=== PATIENT | male | born 1955 | race Caucasian/White ===

== ENCOUNTER 2016-08-14 22:35 | Emergency (ER) | payer BC ==
[~2016-08-14] VITALS: Ht 172.7 cm; Wt 86.6 kg
[~2016-08-14 22:35] MED LIST: ALBUAER19 INH; ASPEC81 PO; FLOMAX INH; PRLSR20 PO; SNG10 PO
[2016-08-14 22:39] VITALS: TEMP 37; Ht 172.7 cm; Wt 86.6 kg
[2016-08-14] MEDS ORDERED: XYLOCAINE 1%/SOD BICARB 20 ML VIAL INFIL ONE (22:50)
[2016-08-14] MEDS ORDERED: OMEP20TA PO (22:55)
[2016-08-14] MEDS ORDERED: FENO160T PO (22:55)
[2016-08-14] MEDS ORDERED: MONT1TAB5 PO (22:55)
[2016-08-14] MEDS ORDERED: LISI-461 PO (22:55)
[2016-08-14] MEDS ORDERED: ASPI81TA28 PO (22:55)
[2016-08-14] MEDS ORDERED: PRVHFAIN INH (22:55)
[2016-08-14] MEDS ORDERED: CEPH500C PO (23:19)
[2016-08-14 23:28] VITALS: BP 116/59; PULSE 71; O2SAT 95
[2016-08-14] MEDS ORDERED: CEPHALEXIN 500MG HOME PACK 1 EA BTL PO ONE (23:30)
--- NOTE | 2016-08-14 23:46 | EMERGENCY ROOM VISIT NOTE ---
History First contact with patient: 22:51 Chief Complaint: LACERATION/CUT (NON-SUTURE) Stated Complaint: CUT RT BIG TOE Nursing Triage Summary: laceration right gt toe cut it with a utility knife while laying carpet. History of Present Illness The patient is a 61 year old male who presents to the Emergency Room with complaints of a laceration to his right great toe while attempting to cut new carpeting in his home. The patient was only wearing socks. He was using a straight edge and carpet knife when the knife slipped and cut his toe. He reports a moderate amount of bleeding. He denies any paresthesias or numbness of the toe. Tetanus immunization is up-to-date. The patient rates his discomfort a 2 out of 10. Review of Systems 10 system review was performed and was negative except for pertinent positives and negatives as indicated in history of present illness Past Medical/Surgical History Medical Problems: (1) Asthma, Unspecified (2) Calculus Of Kidney (3) Cerv Spondyl W Myelopath (4) Mitral Valve Disorder (5) Rotator Cuff Rupture Family History Unremarkable Social History Smoking Status: Never Smoker Alcohol Use: occasionally Marital Status: Occupation Status: employed Current/Historical Medications Scheduled Aspirin (Aspirin Ec), 81 MG PO DAILY Cephalexin Monohydrate (Keflex), 500 MG PO TID Fenofibrate (Tricor), 160 MG PO DAILY Lisinopril (Zestril), 10 MG PO DAILY Montelukast Sodium (Montelukast Sodium), 10 MG PO QPM Scheduled PRN Albuterol (Ventolin Hfa), 2 PUFFS INH UD PRN for Asthma Symptoms Omeprazole (Omeprazole), 20 MG PO DAILY PRN for Acid Reflux Allergies Coded Allergies: Penicillins (Verified Allergy, Severe, ITCHING, 08/09/09) Physical Exam Vital Signs Date Time Temp Pulse Resp B/P Pulse Ox O2 Delivery O2 Flow Rate FiO2 08/14/16 23:28 71 18 116/59 95 Room Air 08/14/16 22:39 37.0 69 18 157/73 96 Room Air Pain Rating (0-10): 3.0 Physical Exam CONSTITUTIONAL: Healthy and well nourished. Alert and oriented X 3 with positive affect. HEENT: Normocephalic, atraumatic. Pupils equal, round and reactive. NECK: Full active range of motion without discomfort. MUSCULOSKELETAL: Examination of the right great toe shows a 2 cm transverse laceration over the medial aspect of the toe, and coming into close proximity to the base of the nail. Nail plate is intact. Mild bleeding is noted. Capillary refill is less than 2 seconds. INTEGUMENTARY: No rash or other significant dermatologic conditions noted. NEUROLOGIC: Right great toe is sensory intact. Medical Decision & Procedures Medications Administered Medications (Trade) Dose Ordered Sig/David Route Start Time Stop Time Status Last Admin Dose Admin Cephalexin Monohydrate (Keflex 500MG Home Pack) 1 homepack NOW ONCE PO 08/14/16 23:30 08/14/16 23:31 DC 08/14/16 23:28 1 HOMEPACK Procedure Laceration repair was performed under digital block anesthesia after receiving verbal consent from the patient. Using buffered 1% lidocaine without epinephrine, good digital block anesthesia was administered. The wound was then peripherally cleansed with iodine, then copiously pressure irrigated with normal saline. The wound was then approximated using 5-0 nylon simple interrupted sutures. Bacitracin dressing was applied. ED Course Patient history and physical exam were performed. Nurse's notes were reviewed. Laceration repair was performed under digital block anesthesia. The patient was provided additional verbal and written wound care instructions. Ice and elevation for swelling and pain. Ibuprofen or Tylenol if needed for additional pain relief. Cousin the laceration does involve the foot, and that the laceration is likely close to the bone, I did elect to treat the patient prophylactically with antibiotics. He was provided a home pack and prescription for Keflex 500 mg 3 times a day 7 days. Suture removal in 12-14 days, or seek reevaluation sooner for any signs of wound infection. The patient was happy with plan of care, voiced understanding of all discharge instructions, and denied any pain at the conclusion of my exam. Impression Primary Impression: Laceration of right great toe Departure Information Dispostion Home / Self-Care Prescriptions Cephalexin Monohydrate (Keflex) 500 Mg Cap 500 MG PO TID for 6 Days, #18 CAP Prov: Scott Chan PA 08/14/16 Referrals No Doctor, Assigned Forms HOME CARE DOCUMENTATION FORM, IMPORTANT VISIT INFORMATION Patient Instructions My [facility] Additional Instructions Keep wound clean and dry. Do not allow any crusting or dried blood to accumulate on sutures. If this occurs, use a 1:1 solution of hydrogen peroxide/ water on a Q-tip to clean the wound. Use an antibiotic ointment for 3-4 days, then let wound dry. Suture removal in 12-14 days. Return sooner for any signs of infection (increasing redness, swelling, drainage). Ice and elevate for swelling and pain. Ibuprofen 600 mg and/or Tylenol 1000 mg every 6 hrs for pain. Complete all Keflex antibiotics as prescribed. Problem Qualifiers Primary Impression: Laceration of right great toe Encounter type: initial encounter Qualified Codes: S91.111A - Laceration without foreign body of right great toe without damage to nail, initial encounter
== END 2016-08-14 23:39 | disposition home or self-care (01) ==
LOC: C.EDB 22:35 → C.EDC 23:39
DX: S91.111A Laceration without foreign body of right great toe without damage to nail, initial encounter (principal); J45.909 Unspecified asthma, uncomplicated; Z79.899 Other long term (current) drug therapy; Z79.82 Long term (current) use of aspirin; W26.0XXA Contact with knife, initial encounter; Y92.009 Unspecified place in unspecified non-institutional (private) residence as the place of occurrence of the external cause; Y99.8 Other external cause status

== ENCOUNTER → 2016-09-04 | Outpatient (CLI) | payer BC ==
[~2016-09-04] MED LIST changes: -ALBUAER19 INH; -ASPEC81 PO; +ASPI81TA28 PO; +FENO160T PO; -FLOMAX INH; +LISI-461 PO; +MONT1TAB5 PO; +OMEP20TA PO; -PRLSR20 PO; +PRVHFAIN INH; -SNG10 PO
--- NOTE | 2016-09-04 09:20 | DIAGNOSTIC IMAGING REPORT ---
ULTRASOUND RIGHT UPPER QUADRANT ABDOMEN CLINICAL HISTORY: Right upper quadrant abdominal pain. COMPARISON STUDY: Abdominal ultrasound dated 08/21/2010. TECHNIQUE: Real-time, grayscale, and color flow sonography of the right upper quadrant of the abdomen was performed. Images are reviewed in the transverse and longitudinal planes. FINDINGS: Liver: The liver is top normal in size and demonstrates heterogeneously increased echotexture consistent with hepatic steatosis. Fatty sparing is seen adjacent to gallbladder fossa. There is no intrahepatic biliary ductal dilatation. The main portal vein is patent. Scattered hepatic cysts measure up to 1.8 cm. Gallbladder: The gallbladder is normal in appearance. No gallstones are identified. There is no gallbladder wall thickening or pericholecystic fluid. A sonographic Ag's sign is reportedly absent. The common bile duct measures up to 0.4 cm in diameter. Pancreas: Visualized portions of the pancreatic head and body are normal in appearance. The splenic vein is patent. Right kidney: Survey images of the right kidney demonstrate normal size and echotexture. There is no hydronephrosis. Ascites: None. IMPRESSION: 1. No acute sonographic abnormality is identified. No gallstones are seen. 2. Hepatic steatosis. Electronically signed by: Maldonado Ontiveros M.D. 09/04/2016 9:18 AM Dictated Date/Time: 09/04/2016 9:17 AM
== END | disposition home or self-care (01) ==
LOC: C.ULTR 08:35
PROVIDERS: ATTEND Family Medicine
DX: R10.9 Unspecified abdominal pain (principal); K76.0 Fatty (change of) liver, not elsewhere classified

== ENCOUNTER → 2016-09-28 | Outpatient (CLI) | payer BC ==
[~2016-09-28] MED LIST changes: +SINCALIDE INJ 1.6 MCG in SODIUM CHLORIDE 0.9% 100ML 100 ML IV ONE
--- NOTE | 2016-09-28 12:29 | DIAGNOSTIC IMAGING REPORT ---
NUCLEAR MEDICINE HEPATOBILIARY SCAN WITH EJECTION FRACTION ANALYSIS CLINICAL HISTORY: RIGHT UPPER QUADRANT PAIN COMPARISON STUDY: 10/11/2008 FINDINGS: The patient was injected with 5.4 mCi of technetium 99m Choletec. Sequential anterior imaging was performed. The gallbladder was first visualized on the 15 minute image. At 1 hour, the patient was injected with 1.6 mcg of sincalide utilizing a 30 minute infusion. The gallbladder ejection fraction was normal measuring 97%. There is normal passage of activity into small bowel. IMPRESSION: Normal study. No evidence of cystic duct obstruction. Normal gallbladder ejection fraction of 97% Electronically signed by: Derek Astorga M.D. 09/28/2016 12:27 PM Dictated Date/Time: 09/28/2016 12:26 PM
== END | disposition home or self-care (01) ==
LOC: C.NUCL 10:08
PROVIDERS: ATTEND Family Medicine
DX: R10.11 Right upper quadrant pain (principal)

== ENCOUNTER → 2016-10-10 | Outpatient (CLI) | payer BC ==
[~2016-10-10] MED LIST changes: -SINCALIDE INJ 1.6 MCG in SODIUM CHLORIDE 0.9% 100ML 100 ML IV ONE
--- NOTE | 2016-10-10 16:42 | DIAGNOSTIC IMAGING REPORT ---
CHEST 2 VIEWS ROUTINE CLINICAL HISTORY: Persistent cough COMPARISON STUDY: 12/17/2013 FINDINGS: The cardiac and mediastinal contours are normal. There is no evidence of focal pulmonary consolidation. There is no evidence of failure. No pleural effusions are visualized.[ There are postsurgical changes present within the cervical spine. IMPRESSION: No active disease in the chest. Electronically signed by: Derek Astorga M.D. 10/10/2016 4:40 PM Dictated Date/Time: 10/10/2016 4:40 PM
[2016-10-10 17:49] LABS: BASO % 0.2 %; BASO ABS # 0.01 K/uL (0-0.2); COMPLETE YES; EOS % 1.2 %; HEMATOCRIT 37.6 % (42-52); IG% 0.7 %; LYMPH % 26.9 %; LYMPH ABS # 1.54 K/uL (1.2-3.4); MEAN CELL VOLUME 82.1 fL (80-100); MEAN CORPUSCULAR HEMOGLOBIN 28.4 pg (25-34); MEAN CORPUSCULAR HGB CONC 34.6 g/dl (32-36); MONO % 10.1 %; NEUT % 60.9 %; PLATELET COUNT 146 K/uL (130-400); RED BLOOD COUNT 4.58 M/uL (4.7-6.1); WHITE BLOOD COUNT 5.72 K/uL (4.8-10.8)
== END | disposition home or self-care (01) ==
LOC: C.LAB 16:01
PROVIDERS: ATTEND Family Medicine Adolescent Medicine
DX: R05 Cough (principal)

== ENCOUNTER 2017-08-04 01:36 | Emergency (ER) | payer BC, OTHER ==
[~2017-08-04] VITALS: Ht 172.7 cm; Wt 90.6 kg
[2017-08-04 01:39] VITALS: TEMP 36.8; Ht 172.7 cm; Wt 90.6 kg
[2017-08-04] MEDS ORDERED: ASPIRIN 81 MG ECTAB PO STA (01:51)
[2017-08-04] MEDS ORDERED: PANT40TA PO (01:59)
[2017-08-04] MEDS ORDERED: SODIUM CHLORIDE 0.9% 1000ML 1,000 ML IV ONE (02:00)
[2017-08-04] MEDS ORDERED: LOSA50TA6 PO (02:00)
[2017-08-04] MEDS ORDERED: NITROGLYCERIN OINT 2% 1GM PACKET EXT ONE (02:00)
[2017-08-04 03:00] VITALS: O2SAT 98
[2017-08-04 03:10] LABS: POTASSIUM 3.9 mmol/L (3.5-5.1); TOTAL PROTEIN 7.2 gm/dl (6.4-8.2)
[2017-08-04 03:12] LABS: BASO % 0.3 %; BASO ABS # 0.02 K/uL (0-0.2); EOS ABS # 0.12 K/uL (0-0.5); HEMATOCRIT 38.3 % (42-52); HEMOGLOBIN 13.5 g/dL (14.0-18.0); IG# 0.03 K/uL (0.00-0.02); LYMPH ABS # 1.52 K/uL (1.2-3.4); MEAN CELL VOLUME 83.4 fL (80-100); MEAN CORPUSCULAR HEMOGLOBIN 29.4 pg (25-34); MEAN CORPUSCULAR HGB CONC 35.2 g/dl (32-36); MEAN PLATELET VOLUME 10.4 fL (7.4-10.4); MONO % 8.4 %; MONO ABS # 0.51 K/uL (0.11-0.59); NEUT % 63.8 %; NEUT ABS # 3.88 K/uL (1.4-6.5); PLATELET COUNT 166 K/uL (130-400); RED CELL DISTRIBUTION WIDTH CV 12.9 % (11.5-14.5); RED CELL DISTRIBUTION WIDTH SD 38.8 fL (36.4-46.3); WHITE BLOOD COUNT 6.08 K/uL (4.8-10.8)
[2017-08-04 03:26] LABS: ALBUMIN 3.9 gm/dl (3.4-5.0); CALCIUM 9.6 mg/dl (8.5-10.1); CREATININE 1.17 mg/dl (0.60-1.40)
[2017-08-04] MEDS ORDERED: LIDOCAINE HCL 2% VISC SOLN 20 ML UDC ONE (04:11)
[2017-08-04] MEDS ORDERED: ALUMINUM/MAGNESIUM SUSP 30 ML UDC ONE (04:11)
[2017-08-04] MEDS ORDERED: GI COCKTAIL PO ONE (04:15)
[2017-08-04 05:09] VITALS: BP 138/73; PULSE 65; O2SAT 93
--- NOTE | 2017-08-04 07:15 | DIAGNOSTIC IMAGING REPORT ---
GALLBLADDER-ABD LIMITED CLINICAL HISTORY: 62 years-old Male presenting with Epigastric abd pain. TECHNIQUE: Real-time grayscale and limited color Doppler ultrasound imaging of the abdomen limited to the right upper quadrant was performed. COMPARISON: 09/04/2016. FINDINGS: Pancreas: Visualized portions of the pancreatic head and body are slightly heterogeneous. Liver: Moderately hyperechogenic parenchyma with partial obscuration of the right hemidiaphragm, likely indicating moderate steatosis. The liver measures 18 cm in maximal sagittal dimension. Lobular anechoic avascular lesion in the left hepatic lobe likely hepatic cyst. Additional hepatic cysts also noted elsewhere. Main portal vein patent with normal directional flow. Biliary: No intrahepatic biliary ductal dilatation. Common bile duct measures up to 3 mm in diameter. Gallbladder: Gallbladder sludge. Echogenic 3 mm nonshadowing focus in the gallbladder may represent a cholesterol polyp. No evidence of gallstones, gallbladder wall thickening, gallbladder distention, or pericholecystic fluid or inflammatory change. Sonographic Ag's sign negative. Right kidney: Normal in appearance. No hydronephrosis. Ascites: None. IMPRESSION: 1. Hepatic steatosis and mild hepatomegaly. Correlate with liver function enzymes to exclude steatohepatitis as a cause for abdominal pain. 2. Gallbladder sludge. No biliary ductal dilatation. 3. Apparent heterogeneity of the visualized portion of the pancreas. This is nonspecific. Correlate with lipase to exclude pancreatitis. Electronically signed by: Marco Lance M.D. 08/04/2017 7:14 AM Dictated Date/Time: 08/04/2017 7:10 AM
--- NOTE | 2017-08-04 07:22 | DIAGNOSTIC IMAGING REPORT ---
ABDOMEN 2VIEW W/PA CHEST RTN CLINICAL HISTORY: 62 years-old Male presenting with Epigastric abd pain. TECHNIQUE: PA view of the chest and supine and upright views of the abdomen were obtained. COMPARISON: 10/10/2016. FINDINGS: Atherosclerosis of the aortic arch. Cardiac silhouette normal in size. Lungs and pleural spaces clear. Nonobstructive bowel gas pattern. No gross pneumoperitoneum. Calcifications projecting over the pelvis may relate to phleboliths or atherosclerosis. Allowing for bowel gas and stool, no calcifications to suggest nephrolithiasis. Degenerative changes of the spine. Partially visualized anterior cervical fusion hardware. Surgical clips also project over the right base of the neck. Osteopenia may be present. IMPRESSION: 1. No acute cardiopulmonary disease. 2. No radiographic evidence of acute intra-abdominal pathology. Electronically signed by: Marco Lance M.D. 08/04/2017 7:21 AM Dictated Date/Time: 08/04/2017 7:19 AM
--- NOTE | 2017-08-05 05:08 | EMERGENCY ROOM VISIT NOTE ---
History First contact with patient: 01:42 Chief Complaint: ABDOMINAL PAIN Stated Complaint: STOMACH PAIN Nursing Triage Summary: epigastric pain since 929 that radiates through to back. denies SOB or nausea. History of Present Illness The patient is a 62 year old male who presents to the Emergency Room with complaints of epigastric abdominal pain that started about 4 hours ago. The patient does not have distinct chest pain, short of breath, nausea, or vomiting. No lower abdominal discomfort. He describes the pain as sharp and intermittent. The patient reports a past history of GERD and does take Prilosec. The patient took 3 or 4 tums without significant relief. He does not report abdominal surgery in the past. No recent illness. He rates his current discomfort a 6/10. Please note that portions of the patient visit were completed during a [employer] downtime. Review of Systems More than 10 systems were reviewed and otherwise negative with the exception of history of present illness. Past Medical/Surgical History Medical Problems: (1) Asthma, Unspecified (2) Calculus Of Kidney (3) Cerv Spondyl W Myelopath (4) Mitral Valve Disorder (5) Rotator Cuff Rupture Family History No pertinent family history Social History Smoking Status: Current Every Day Smoker Alcohol Use: occasionally Marital Status: Occupation Status: employed Current/Historical Medications Scheduled Aspirin (Aspirin Ec), 81 MG PO DAILY Fenofibrate (Tricor), 160 MG PO DAILY Losartan Potassium (Cozaar), 50 MG PO DAILY Montelukast Sodium (Montelukast Sodium), 10 MG PO QPM Pantoprazole (Protonix), 40 MG PO DAILY Physical Exam Vital Signs Date Time Temp Pulse Resp B/P (MAP) Pulse Ox O2 Delivery O2 Flow Rate FiO2 08/04/17 05:09 65 16 138/73 93 08/04/17 04:00 66 21 143/75 96 08/04/17 03:00 59 16 144/73 98 Room Air 08/04/17 03:00 62 08/04/17 03:00 98 Room Air 08/04/17 01:53 68 08/04/17 01:39 36.8 65 20 171/76 96 Room Air Physical Exam VITALS: Vitals are noted on the nurse's note and reviewed by myself. Vital signs stable. GENERAL: Well-developed, well-nourished, white male, who is in no acute distress and resting comfortably. Patient is cooperative with the examination. HEAD: Normocephalic atraumatic. EARS: External ear normal. External auditory canals clear, tympanic membranes pearly stringer without erythema or effusion bilaterally. EYES: Pupils equal round and reactive to light and accommodation. Conjunctivae without injection, sclerae without icterus. Extraocular movements intact. NOSE: Patent, turbinates without inflammation or discharge. MOUTH: Mucous membranes moist. Tonsils are not enlarged. Pharynx without erythema, blood, or exudate. Uvula midline. Airway patent. NECK: Supple without nuchal rigidity. No lymphadenopathy. No thyromegaly. Cervical spine is nontender. HEART: Regular rate and rhythm without murmurs gallops or rubs. LUNGS: Clear to auscultation bilaterally without wheezes, rales or rhonchi. No retractions or accessory muscle use. ABDOMEN: Positive normal bowel sounds x 4. Soft with mild epigastric tenderness on palpation. No rebound or guarding. No CVA tenderness. No lower abdominal tenderness. Medical Decision & Procedures ER Provider Diagnostic Interpretation: ABDOMEN 2VIEW W/PA CHEST RTN CLINICAL HISTORY: 62 years-old Male presenting with Epigastric abd pain. TECHNIQUE: PA view of the chest and supine and upright views of the abdomen were obtained. COMPARISON: 10/10/2016. FINDINGS: Atherosclerosis of the aortic arch. Cardiac silhouette normal in size. Lungs and pleural spaces clear. Nonobstructive bowel gas pattern. No gross pneumoperitoneum. Calcifications projecting over the pelvis may relate to phleboliths or atherosclerosis. Allowing for bowel gas and stool, no calcifications to suggest nephrolithiasis. Degenerative changes of the spine. Partially visualized anterior cervical fusion hardware. Surgical clips also project over the right base of the neck. Osteopenia may be present. IMPRESSION: 1. No acute cardiopulmonary disease. 2. No radiographic evidence of acute intra-abdominal pathology. GALLBLADDER-ABD LIMITED CLINICAL HISTORY: 62 years-old Male presenting with Epigastric abd pain. TECHNIQUE: Real-time grayscale and limited color Doppler ultrasound imaging of the abdomen limited to the right upper quadrant was performed. COMPARISON: 09/04/2016. FINDINGS: Pancreas: Visualized portions of the pancreatic head and body are slightly heterogeneous. Liver: Moderately hyperechogenic parenchyma with partial obscuration of the right hemidiaphragm, likely indicating moderate steatosis. The liver measures 18 cm in maximal sagittal dimension. Lobular anechoic avascular lesion in the left hepatic lobe likely hepatic cyst. Additional hepatic cysts also noted elsewhere. Main portal vein patent with normal directional flow. Biliary: No intrahepatic biliary ductal dilatation. Common bile duct measures up to 3 mm in diameter. Gallbladder: Gallbladder sludge. Echogenic 3 mm nonshadowing focus in the gallbladder may represent a cholesterol polyp. No evidence of gallstones, gallbladder wall thickening, gallbladder distention, or pericholecystic fluid or inflammatory change. Sonographic Ag's sign negative. Right kidney: Normal in appearance. No hydronephrosis. Ascites: None. IMPRESSION: 1. Hepatic steatosis and mild hepatomegaly. Correlate with liver function enzymes to exclude steatohepatitis as a cause for abdominal pain. 2. Gallbladder sludge. No biliary ductal dilatation. 3. Apparent heterogeneity of the visualized portion of the pancreas. This is nonspecific. Correlate with lipase to exclude pancreatitis. Laboratory Results 08/04/17 02:06 Red Blood Count 4.59, Mean Corpuscular Volume 83.4, Mean Corpuscular Hemoglobin 29.4, Mean Corpuscular Hemoglobin Concent 35.2, Mean Platelet Volume 10.4, Neutrophils (%) (Auto) 63.8, Lymphocytes (%) (Auto) 25.0, Monocytes (%) (Auto) 8.4, Eosinophils (%) (Auto) 2.0, Basophils (%) (Auto) 0.3, Neutrophils # (Auto) 3.88, Lymphocytes # (Auto) 1.52, Monocytes # (Auto) 0.51, Eosinophils # (Auto) 0.12, Basophils # (Auto) 0.02 08/04/17 02:00 Test 08/04/17 02:00 08/04/17 02:06 08/04/17 02:08 08/04/17 03:58 Anion Gap 8.0 mmol/L (3-11) Est Creatinine Clear Calc Drug Dose 71.5 ml/min Estimated GFR () 77.0 Estimated GFR (Non- 66.4 BUN/Creatinine Ratio 17.2 (10-20) Calcium Level 9.6 mg/dl (8.5-10.1) Total Bilirubin 0.5 mg/dl (0.2-1) Aspartate Amino Transf (AST/SGOT) 22 U/L (15-37) Alanine Aminotransferase (ALT/SGPT) 65 U/L (12-78) Alkaline Phosphatase 52 U/L (45-117) Total Protein 7.2 gm/dl (6.4-8.2) Albumin 3.9 gm/dl (3.4-5.0) Globulin 3.3 gm/dl (2.5-4.0) Albumin/Globulin Ratio 1.2 (0.9-2) Lipase 245 U/L (73-393) White Blood Count 6.08 K/uL (4.8-10.8) Red Blood Count 4.59 M/uL (4.7-6.1) Hemoglobin 13.5 g/dL (14.0-18.0) Hematocrit 38.3 % (42-52) Mean Corpuscular Volume 83.4 fL (80-100) Mean Corpuscular Hemoglobin 29.4 pg (25-34) Mean Corpuscular Hemoglobin Concent 35.2 g/dl (32-36) Platelet Count 166 K/uL (130-400) Mean Platelet Volume 10.4 fL (7.4-10.4) Neutrophils (%) (Auto) 63.8 % Lymphocytes (%) (Auto) 25.0 % Monocytes (%) (Auto) 8.4 % Eosinophils (%) (Auto) 2.0 % Basophils (%) (Auto) 0.3 % Neutrophils # (Auto) 3.88 K/uL (1.4-6.5) Lymphocytes # (Auto) 1.52 K/uL (1.2-3.4) Monocytes # (Auto) 0.51 K/uL (0.11-0.59) Eosinophils # (Auto) 0.12 K/uL (0-0.5) Basophils # (Auto) 0.02 K/uL (0-0.2) RDW Standard Deviation 38.8 fL (36.4-46.3) RDW Coefficient of Variation 12.9 % (11.5-14.5) Immature Granulocyte % (Auto) 0.5 % Immature Granulocyte # (Auto) 0.03 K/uL (0.00-0.02) Bedside D-Dimer 359 ng/mlFEU (0-450) Urine Color YELLOW Urine Appearance CLEAR (CLEAR) Urine pH 7.5 (4.5-7.5) Urine Specific [place] 1.011 (1.000-1.030) Urine Protein NEG (NEG) Urine Glucose (UA) NEG (NEG) Urine Ketones NEG (NEG) Urine Occult Blood NEG (NEG) Urine Nitrite NEG (NEG) Urine Bilirubin NEG (NEG) Urine Urobilinogen NEG (NEG) Urine Leukocyte Esterase NEG (NEG) Test 08/04/17 04:17 Bedside Troponin I < 0.030 ng/ml (0-0.045) Medications Administered Medications (Trade) Dose Ordered Sig/Dvaid Route Start Time Stop Time Status Last Admin Dose Admin Al Hydroxide/Mg Hydroxide (Maalox Susp) 30 ml STK-MED ONCE .ROUTE 08/04/17 04:11 08/04/17 04:12 DC 08/04/17 04:19 30 ML Lidocaine HCl (Viscous Lidocaine 2% Soln) 20 ml STK-MED ONCE .ROUTE 08/04/17 04:11 08/04/17 04:12 DC 08/04/17 04:20 10 ML ED Course Physical exam and history were performed. Nursing notes, EMR, and Medication List were personally reviewed. Patient appears to have epigastric abdominal pain that began a few hours ago. He is reproducibly tender in the epigastrium. EKG was performed and reviewed by myself as being normal sinus rhythm at 62 bpm without ischemia and no ectopy. EKG is essentially unchanged from previous. IV access was established and labs were obtained. The patient was hydrated and medicated as above. I did elect to perform plain films as well as ultrasound. The patient's blood work is as above and was reviewed. He does not have a significantly elevated white blood cell count, gross anemia, bandemia, or significant electrolyte imbalance. Lipase and transaminases are nondiagnostic. Troponin and d-dimer are both negative. The patient's chest x-ray and abdominal series are without significant findings per my and radiology's interpretation. Ultrasound does not show obvious biliary etiology for the patient's symptoms. Reevaluation the patient continues to be quite comfortable. He did not have any significant worsening of his symptoms. He continues to remain very comfortable here in the department. Repeat abdominal examination does not show significant worsening of symptoms or exam consistent with an acute surgical abdomen. Overall the patient is felt to be stable for discharge home. He was given discharge instructions as below and was otherwise invited back to the ER with any new, worsening, or concerning symptoms. The chart was completed utilizing [employer] Voice Recognition Software. Grammatical errors, random word insertions, pronoun errors, and incomplete sentences are an occasional consequence of this system due to software limitations, ambient noise, and hardware issues. Any formal questions or concerns about the content, text, or information contained within the body of this dictation should be directly addressed to the provider for clarification. . Medical Decision Differential diagnosis: Etiologies such as appendicitis, diverticulitis, PUD, biliary pathology, UTI, pancreatitis, obstruction, mesenteric ischemia, aortic pathology, infections, inflammatory bowel disease, renal colic, as well as others were entertained. Impression Primary Impression: Epigastric abdominal pain Departure Information Dispostion Home / Self-Care Condition GOOD Forms Call Back Authorization, HOME CARE DOCUMENTATION FORM, IMPORTANT VISIT INFORMATION Patient Instructions My [facility] Additional Instructions You were seen and evaluated today on an emergency basis only. This is not a substitute for, or an effort to provide, complete comprehensive medical care. It is not possible to recognize and treat all injuries or illnesses in a single emergency department visit. For this reason it is recommended that you followup with your primary care physician in the next 1-2 days for recheck of her symptoms. Drink plenty of fluids and remain well hydrated. You are welcome to return to the emergency department anytime with new, worsening, or concerning symptoms.
== END 2017-08-04 05:10 | disposition home or self-care (01) ==
LOC: C.EDB 01:37
DX: R10.13 Epigastric pain (principal); J45.909 Unspecified asthma, uncomplicated; Z87.442 Personal history of urinary calculi; M47.12 Other spondylosis with myelopathy, cervical region; F17.210 Nicotine dependence, cigarettes, uncomplicated; Z79.82 Long term (current) use of aspirin; Z79.899 Other long term (current) drug therapy

== ENCOUNTER 2024-03-22 18:19 | Observation (INO) ==
--- NOTE | 2024-03-22 18:31 | ED Triage Note ---
Date of Service March 22, 2024 Provider in Triage Author: Scott Chan History of Present Illness This patient was briefly evaluated while in triage. An abbreviated physical exam was performed. This patient is a 68-year-old Male who presents to the ED for evaluation of left flank pain for the past few days. The patient reports that the pain has been intermittent. The patient reports that the pain goes into his left shoulder. He is also having cold sweats. Patient has had a remote history of kidney stones. Patient also reports a history of pancreatic cyst and splenic issues. Patient has not noticed anything unusual about his urine. Patient denies any chest pain or shortness of breath. The patient rates his discomfort a 9 out of 10 at its worst. Physical Exam CONSTITUTIONAL: Healthy and well nourished. Patient appears in mild discomfort. HEENT: No scleral icterus or conjunctival injection. RESPIRATORY: Clear to auscultation bilaterally with no wheezing, crackles, rhonchi or stridor. CARDIOVASCULAR: Regular rate and rhythm with no murmurs, rubs or gallops. GASTROINTESTINAL: Bowel sounds present in all quadrants. Patient has minimal left upper quadrant abdominal pain. Negative CVA tenderness. No abdominal rigidity, guarding or rebound. MUSCULOSKELETAL: Full range of motion of all joints without discomfort. INTEGUMENTARY: No rash or other significant dermatologic conditions noted. HEMATOLOGIC: No ecchymosis or petechiae. PSYCHIATRIC: Positive affect. NEUROLOGIC: No focal neurologic deficits noted. Initial orders for labs and / or imaging were placed and patient was placed in the waiting area until a bed is available. Please see further documentation for the full ED course.
[2024-03-22 19:03] LABS: Basophils # (auto) 0.04 K/uL (0.00-0.20); Basophils % (auto) 0.3 %; Eosinophils # (auto) 0.17 K/uL (0.00-0.50); Eosinophils % (auto) 1.3 %; Hematocrit (blood only) 38.8 % (42.0-52.0); Hemoglobin 13.9 g/dl (14.0-18.0); Immature Granulocytes # (auto) 0.14 K/uL (0.01-0.20); Immature Granulocytes % (auto) 1.1 %; Lymphocytes # (auto) 1.81 K/uL (1.20-3.40); Lymphocytes % (auto) 14.1 %; Mean Corpuscular Hemoglobin 28.4 pg (25.0-34.0); Mean Corpuscular Hgb Conc 35.8 g/dL (32.0-36.0); Mean Corpuscular Volume 79.3 fL (80.0-100.0); Mean Platelet Volume 9.8 fL (9.4-12.4); Monocytes # (auto) 0.83 K/uL (0.11-0.59); Monocytes % (auto) 6.5 %; Neutrophils # (auto) 9.84 K/uL (1.40-6.50); Neutrophils % (auto) 76.7 %; Platelet Count 177 K/uL (130-400); RDW Standard Deviation 42.9 fL (36.4-46.3); Red Blood Count 4.89 M/uL (4.70-6.10); White Blood Count 12.83 K/ul (4.8-10.8)
--- NOTE | 2024-03-22 19:11 | CT Scan Report ---
Exam(s): CT ABDOMEN + PELVIS Without Contrast EXAM: CT Abdomen and Pelvis Without Intravenous Contrast CLINICAL HISTORY: Reason for exam: L flank pain. TECHNIQUE: Axial computed tomography images of the abdomen and pelvis without intravenous contrast. CTDI is 20.08 mGy and DLP is 1037.43 mGy-cm. Automated exposure control was utilized for the study. A dose lowering technique was utilized adhering to the principles of ALARA. COMPARISON: CT abdomen pelvis 10/29/2023 FINDINGS: ABDOMEN: Liver: A few scattered cysts within the liver. Gallbladder and bile ducts: Cholecystectomy. No biliary dilatation. Pancreas: Heterogeneous high attenuation mass in the tail of the pancreas measuring 3.3 x 2.5 cm. Spleen: Unremarkable. Adrenals: Unremarkable. Kidneys and ureters: Unremarkable. No obstructing stones. No hydronephrosis. Stomach and bowel: Sigmoid diverticulosis without acute diverticulitis. PELVIS: Appendix: Normal appendix. Bladder: Unremarkable. Reproductive: Prostatomegaly. ABDOMEN and PELVIS: Intraperitoneal space: Trace free fluid in the pelvis. No free air. Bones/joints: No acute fracture. Soft tissues: Unremarkable. Vasculature: Unremarkable. Lymph nodes: Unremarkable. IMPRESSION: Heterogeneous high attenuation mass in the tail of the pancreas measuring 3.3 x 2.5 cm. Recommend MRI with and without contrast for further characterization. Electronically signed by: Lc Graham MD 03/22/24 19:10 PM
[2024-03-22 19:17] LABS: Albumin Globulin Ratio 2.1 (0.9-2); Albumin Level 4.8 gm/dl (3.4-5.0); BUN Creatinine Ratio 26.4 (10-20); Bilirubin,Total 1.5 mg/dl (0.2-1.0); Calcium 9.4 mg/dl (8.6-10.3); Creatinine Clr Calc Pharmacy 77.7 ml/min; Est GFR (Non-African American) 86.3 ml/min; Globulin 2.3 gm/dl (2.5-4.0); Potassium 3.9 mmol/L (3.5-5.1); Total Protein 7.1 gm/dl (6.0-8.3)
[2024-03-22 20:04] LABS: Appearance Urine Clear (Clear); Bilirubin Urine Negative (Negative); Blood Urine Negative (Negative); Color Urine Yellow; Glucose Urine UA Negative (Negative); Ketones Urine Negative (Negative); Leukocyte Esterase Urine Negative (Negative); Nitrite Urine Negative (Negative); Protein Urine Negative (Negative); Specific Gravity Urine 1.021 (1.000-1.030); Urobilinogen Urine Negative (Negative)
--- NOTE | 2024-03-22 20:17 | Emergency Department Note ---
History of Present Illness General Chief complaint: Flank Pain Stated complaint: FLANK PAIN Time Seen by Provider: 03/22/24 20:01 Source: patient, family ( was at the bedside), RN notes reviewed and old records reviewed (07/07/23-exercise stress test) Mode of arrival: ambulatory Limitations: no limitations History of Present Illness Maximum Pain Intensity: 8 This patient is a 68-year-old male who comes in after having abdominal pain in his left side that wraps around to the back he has also had pain in his left shoulder he is intermittent lasting about 15 minutes he also had episode where he got very diaphoretic and clammy and but has had no definite fever he gets nauseated when he gets the symptoms he does have a known pancreatic cyst of unknown etiology it was seen on a previous CAT scan done in January and he said he had a biopsy at [facility] and was told it was not malignant. He does not drink alcohol. He has had some chronic diarrhea no blood or melena stool no focal numbness weakness no chest pain or shortness of breath although he says that he has had 2 recent false positive stress test because he had chest pain this year. He sees Dr. Last. He has not had a cardiac cath. He does have a history of a chronic splenic vein thrombosis and also as per my review the old records factor V Leiden. He is on no blood thinners. Home Medications Medication Instructions Recorded Confirmed Type fenofibrate 160 mg tablet 160 mg PO PM 01/31/19 11/22/23 History losartan 50 mg tablet 75 mg PO PM 01/31/19 11/22/23 History atorvastatin 10 mg tablet 10 mg PO QPM 12/04/21 11/22/23 History fluticasone 250 mcg-salmeterol 50 1 inh inhalation BID 06/09/23 11/22/23 History mcg/dose blistr powdr for inhalation pantoprazole 40 mg tablet,delayed 40 mg PO QAM 06/09/23 11/22/23 History release ascorbic acid 1,000 1 ea PO DAILY 10/11/23 11/22/23 History ep-mjglettycdox-opbltxqn powder effervescent pack (Emergen-C) glucosamine sulf dipot 1 cap PO DAILY 10/11/23 11/22/23 History chlr,msm,chond 550 mg-C 30 mg-bridger 1 mg capsule (Glucosamine Chondroitin) loratadine 10 mg tablet (Claritin) 10 mg PO QAM 10/11/23 11/22/23 History montelukast 10 mg tablet 10 mg PO DAILY PRN Congestion 10/11/23 11/22/23 History multivitamin 1 tab PO DAILY 10/11/23 11/22/23 History albuterol sulfate 90 mcg/actuation See Rx Instructions .Route 02/25/24 02/25/24 Rx aerosol inhaler .COMPLEX #3 Inhalers Allergies Allergy/AdvReac Type Severity Reaction Status Date / Time Penicillins Allergy Severe ITCHING Verified 11/22/23 10:35 Past Med/Surg History Problem List (Updated 03/23/24 @ 01:09 by Doug Nassar MD) Pancreatic mass (Acute) Diaphoresis (Acute) Abdominal pain (Acute) Chest pain (Acute) Bilateral shoulder pain Wheezing Cough Dyspnea Mild persistent asthma, uncomplicated Post-traumatic osteoarthritis of right knee Bilateral tinnitus Sensorineural hearing loss (SNHL) of both ears Cervical radiculopathy (Acute) Asthma (Acute) Hypertension (Acute) 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 Last Hyperlipidemia Hypertension History of kidney stones passed on own History of esophageal reflux Factor 5 Leiden mutation, heterozygous was on aspirin 81mg, stopped approx 1 year ago due to stomach issues Asthma res inh use prior to exercise Surgical History History of carpal tunnel release left History of colonoscopy History of esophagogastroduodenoscopy (EGD) History of tonsillectomy Hx of cervical discectomy and fusion > side to side ROM is somewhat limited History of arthroscopy of right knee Status post trigger finger release x several H/O shoulder surgery bilat arthroscopic History of bilateral inguinal hernia repair Family History Unknown Allergic rhinitis Factor V Leiden mutation Father Hypertension Cancer Colon cancer Mother Cancer Social History Smoking Status: Never smoker Second Hand Exposure: Yes (mother smoked); Do You Dip or Chew Tobacco: No; Hx Alcohol Use: Yes Alcohol type: beer Hx Substance Use: No Preferred Language: [place] Communication Ability: Effective Ventilator Specialist Required: No Beliefs That Will Affect Care: None Current Living Situation: Spouse Feels Safe at Home: Yes Assistive Devices: Glasses Review of Systems A total of 10 systems reviewed and were otherwise negative Physical Exam Vital Signs Vital Signs - 24 hr 03/22/24 18:27 03/22/24 19:51 03/22/24 21:00 Temperature 36.6 C Temperature Source Temporal Artery Scan Pulse Rate 84 Pulse Rate [Finger] 77 72 Respiratory Rate 20 18 16 Respiratory Effort / Characteristics Non-Labored Respiratory Depth Normal Normal Blood Pressure 156/75 H Blood Pressure [Right Arm] 131/68 164/69 H Blood Pressure Mean 102 Blood Pressure Mean [Right Arm] 89 100 Blood Pressure Position [Right Arm] Semi-fowlers Semi-fowlers Pulse Oximetry 98 98 99 Oxygen Delivery Method Room Air Room Air Room Air Sepsis Recent Fever Within 48 Hours No Sepsis New/Unexplained Change in Mental Status No Sepsis Action Taken by Nursing No Action Required 03/22/24 23:00 Temperature Temperature Source Pulse Rate Pulse Rate [Finger] Respiratory Rate Respiratory Effort / Characteristics Non-Labored Respiratory Depth Normal Blood Pressure Blood Pressure [Right Arm] Blood Pressure Mean Blood Pressure Mean [Right Arm] Blood Pressure Position [Right Arm] Pulse Oximetry Oxygen Delivery Method Sepsis Recent Fever Within 48 Hours Sepsis New/Unexplained Change in Mental Status Sepsis Action Taken by Nursing General: Well developed well nourished mqx-xxp-ecgqoocho middle-age male who appears in no acute distress, breathing comfortably on room air. Normal speech HEENT: Normal cephalic atraumatic. Sclera are anicteric. Pupils are equal round and reactive to light. Extraocular movements are intact. Oropharynx is pink with moist mucous membranes. No swelling of the mouth lips or tongue. Neck: Supple with a midline trachea. No meningeal signs or stiffness, no JVD or bruits. No Stridor. Chest: Clear to auscultation bilaterally. No wheezes or rhonchi. No increased work of breathing. Heart: Regular rate and rhythm without murmurs or gallops. Abdomen: Soft nontender, nondistended without rebound guarding or rigidity. Extremities: No cyanosis clubbing or edema. No calf tenderness or assymetry Spine/Back. Non tender to palpation. No CVA tenderness Skin: Good turgor without rashes. Neurologic exam: Cranial nerves two through 12 are intact. Motor and sensation are intact and symmetrical throughout. Course Administered Medications Discontinued Medications Sodium Chloride (Nss) 1,000 mls @ 999 mls/hr IV .Q1H1M ONE Stop: 03/22/24 21:12 Last Infusion: 03/22/24 22:09 Dose: Infused Documented By: Admin: 03/22/24 20:37 Dose: 999 mls/hr Documented By: CHAYA Ioversol (Optiray 320 125ml) 118 ml IV ONCE ONE Stop: 03/22/24 21:25 Last Admin: 03/22/24 21:24 Dose: 118 ml Documented By: JADE Medical Decision Making Differential Diagnosis Splenic process, intra-abdominal process, kidney stone, kidney infection, cardiac disease, PE, infection, thrombotic process Medical Records Attestation: I reviewed the patient's medical records. Home Medications Current Medication List: was personally reviewed by me Laboratory Data Attestation: I reviewed the patient's lab results. 03/22/24 18:35 03/22/24 18:35 Lab Results 03/22/24 03/22/24 03/22/24 Range/Units 18:35 19:50 22:00 WBC 12.83 H (4.8-10.8) K/ul RBC 4.89 (4.70-6.10) M/uL Hgb 13.9 L (14.0-18.0) g/dl Hct 38.8 L (42.0-52.0) % MCV 79.3 L (80.0-100.0) fL MCH 28.4 (25.0-34.0) pg MCHC 35.8 (32.0-36.0) g/dL RDW Std Deviation 42.9 (36.4-46.3) fL RDW Coeff of Jil 15.0 H (11.5-14.5) % Plt Count 177 (130-400) K/uL MPV 9.8 (9.4-12.4) fL Immature Gran % (Auto) 1.1 % Neut % (Auto) 76.7 % Lymph % (Auto) 14.1 % [place] % (Auto) 6.5 % Eos % (Auto) 1.3 % Baso % (Auto) 0.3 % Neut # (Auto) 9.84 H (1.40-6.50) K/uL Lymph # (Auto) 1.81 (1.20-3.40) K/uL [place] # (Auto) 0.83 H (0.11-0.59) K/uL Eos # (Auto) 0.17 (0.00-0.50) K/uL Baso # (Auto) 0.04 (0.00-0.20) K/uL Immature Gran # (Auto) 0.14 (0.01-0.20) K/uL D-Dimer 1570 H* (0-500) ug/L FEU Sodium 133 L (136-145) mmol/L Potassium 3.9 (3.5-5.1) mmol/L Chloride 99 (98-107) mmol/L Carbon Dioxide 25 (21-32) mmol/L Anion Gap 9 (3-11) BUN 24 H (6-23) mg/dl Creatinine 0.91 (0.6-1.4) mg/dl Est Cr Clr Drug Dosing 77.7 ml/min Est GFR ( Amer) 100.0 ml/min Est GFR (Non-Af Amer) 86.3 ml/min BUN/Creatinine Ratio 26.4 H (10-20) Glucose 126 H (70-99(Fasting)) mg/dl Lactate 0.9 (0.4-2.0) mmol/L Calcium 9.4 (8.6-10.3) mg/dl Total Bilirubin 1.5 H (0.2-1.0) mg/dl AST 20 (13-39) U/L ALT 26 (7-52) U/L Alkaline Phosphatase 50 (34-104) U/L Troponin I High Sens 6.0 (0-20) pg/ml Total Protein 7.1 (6.0-8.3) gm/dl Albumin 4.8 (3.4-5.0) gm/dl Globulin 2.3 L (2.5-4.0) gm/dl Albumin/Globulin Ratio 2.1 H (0.9-2) Lipase 61 (11-82) U/L Urine Color Yellow Urine Appearance Clear (Clear) Urine pH 6.0 (4.5-7.5) Ur Specific [place] 1.021 (1.000-1.030) Urine Protein Negative (Negative) Urine Glucose (UA) Negative (Negative) Urine Ketones Negative (Negative) Urine Blood Negative (Negative) Urine Nitrite Negative (Negative) Urine Bilirubin Negative (Negative) Urine Urobilinogen Negative (Negative) Ur Leukocyte Esterase Negative (Negative) Imaging Data Attestation: I personally reviewed and interpreted this imaging study as follows: My Impression: Chest x-rayno acute infiltrate, failure, pneumothorax seen Radiologist's Impression: Abdomen/Pelvis CT 03/22/24 18:32 Exam(s): CT ABDOMEN + PELVIS Without Contrast EXAM: CT Abdomen and Pelvis Without Intravenous Contrast CLINICAL HISTORY: Reason for exam: L flank pain. TECHNIQUE: Axial computed tomography images of the abdomen and pelvis without intravenous contrast. CTDI is 20.08 mGy and DLP is 1037.43 mGy-cm. Automated exposure control was utilized for the study. A dose lowering technique was utilized adhering to the principles of ALARA. COMPARISON: CT abdomen pelvis 10/29/2023 FINDINGS: ABDOMEN: Liver: A few scattered cysts within the liver. Gallbladder and bile ducts: Cholecystectomy. No biliary dilatation. Pancreas: Heterogeneous high attenuation mass in the tail of the pancreas measuring 3.3 x 2.5 cm. Spleen: Unremarkable. Adrenals: Unremarkable. Kidneys and ureters: Unremarkable. No obstructing stones. No hydronephrosis. Stomach and bowel: Sigmoid diverticulosis without acute diverticulitis. PELVIS: Appendix: Normal appendix. Bladder: Unremarkable. Reproductive: Prostatomegaly. ABDOMEN and PELVIS: Intraperitoneal space: Trace free fluid in the pelvis. No free air. Bones/joints: No acute fracture. Soft tissues: Unremarkable. Vasculature: Unremarkable. Lymph nodes: Unremarkable. IMPRESSION: Heterogeneous high attenuation mass in the tail of the pancreas measuring 3.3 x 2.5 cm. Recommend MRI with and without contrast for further characterization. Electronically signed by: Lc Graham MD 03/22/24 19:10 PM Abdomen/Pelvis CTA 03/22/24 20:59 Exam(s): CTA ABDOMEN + PELVIS With Contrast IV Amt: 118 cc opti 320 EXAM: CT Angiography Abdomen and Pelvis With Intravenous Contrast CLINICAL HISTORY: Reason for exam: hx of splenic infarct. TECHNIQUE: Axial computed tomographic angiography images of the abdomen and pelvis with intravenous contrast. CTDI is 31 mGy and DLP is 1438.63 mGy-cm. Automated exposure control was utilized for the study. A dose lowering technique was utilized adhering to the principles of ALARA. MIP reconstructed images were created and reviewed. CONTRAST: Patient received 118 cc opti 320 of IV contrast COMPARISON: CT abdomen pelvis 03/22/2024 FINDINGS: VASCULATURE: Aorta: No acute findings. No abdominal aortic aneurysm. No dissection. Celiac trunk and mesenteric arteries: No acute findings. No occlusion or significant stenosis. Renal arteries: No acute findings. No occlusion or significant stenosis. Iliac arteries: No acute findings. No occlusion or significant stenosis. Lung bases: Unremarkable. No mass. No consolidation. ABDOMEN: Liver: Multiple cysts in the liver. Gallbladder and bile ducts: Cholecystectomy. No ductal dilation. Pancreas: Heterogeneous mass in the tail of the pancreas measuring approximately 3.1 x 2.5 cm. Potentially a pseudocyst containing debris. No ductal dilation. Spleen: No splenic infarct. Adrenals: Unremarkable. No mass. Kidneys and ureters: Unremarkable. No hydronephrosis. No solid mass. Stomach and bowel: Varices in the left upper quadrant and within the gastric fundus. No obstruction. No mucosal thickening. PELVIS: Appendix: No findings to suggest acute appendicitis. Bladder: Unremarkable. No mass. Reproductive: Unremarkable as visualized. ABDOMEN and PELVIS: Intraperitoneal space: Unremarkable. No significant fluid collection. No free air. Bones/joints: No acute fracture. No dislocation. Soft tissues: Unremarkable. Lymph nodes: Unremarkable. No enlarged lymph nodes. IMPRESSION: 1. No splenic infarct. 2. Heterogeneous mass in the tail of the pancreas measuring approximately 3.1 x 2.5 cm. Potentially a pseudocyst containing debris. Consider MRI abdomen deferred definitive characterization. 3. Varices in the left upper quadrant and within the gastric fundus. Electronically signed by: Lc Graham MD 03/22/24 21:57 PM Chest CTA 03/22/24 20:59 Exam(s): CTA CHEST IV Amt: 118 cc opti 320 EXAM: CT Angiography Chest With Intravenous Contrast CLINICAL HISTORY: Reason for exam: PE. TECHNIQUE: Axial computed tomographic angiography images of the chest with intravenous contrast. CTDI is 11.87 mGy and DLP is 5.94 mGy-cm. Automated exposure control was utilized for the study. A dose lowering technique was utilized adhering to the principles of ALARA. MIP reconstructed images were created and reviewed. COMPARISON: CTA chest 10/26/2023 FINDINGS: Pulmonary arteries: Unremarkable. No pulmonary embolism. Aorta: No acute findings. Normal caliber. No dissection. Lungs: Unremarkable. Pleural space: Unremarkable. Heart: Unremarkable. Bones/joints: No acute fracture. Soft tissues: Unremarkable. Lymph nodes: Unremarkable. Liver: Multiple cysts within the liver. IMPRESSION: No acute findings in the visualized arteries of the chest. Electronically signed by: Lc Graham MD 03/22/24 21:52 PM ECG Data Attestation: I personally reviewed and interpreted this ECG as follows: Indication: + chest pain Rate (beats per minute): 69 Rhythm: + normal sinus ECG Intervals/blocks: + Normal QRS, + Normal QT and + Normal CT ECG [place]: + Normal ECG ST segments: + Normal ST segments ECG Findings: no PACs or no PVCs Comparison ECG Date: from (06/08/23) Change: no significant change MDM Narrative This patient comes in as described above. He was placed in room C3. He had orders done prior to me evaluating him which included labs and a noncontrast CT. The noncontrast CT shows a known pancreatic mass which he tells me was biopsied and was nonmalignant. He does have a mildly elevated white count of 12 is afebrile here. He did have steroid injections in his shoulders last week which could be contributing to this. I did add a cardiac workup as well as a D-dimer and a vascular type workup. EKG and troponin were unremarkable. D-dimer was elevated. CT angiography shows no evidence of PE or abnormality. CT angio of the abdomen shows no other acute abnormalities beyond the known pancreatic mass. I am concerned the patient did have an upper abdominal pain on the left with shoulder pain and had an episode of diaphoresis. I do think he needs further evaluation for cardiac disease he tells me he had a false positive stress test earlier this year. He is never had a cardiac cath. I have consulted the [facility] hospitalist to see him the ER for further treatment and evaluation. Impression & Plan Chest pain, Abdominal pain, Diaphoresis, Pancreatic mass Discharge Plan Visit Data Chief Complaint: Flank Pain Stated Complaint: FLANK PAIN ED Provider: Doug Nassar Discharge Problem: Chest pain, Abdominal pain, Diaphoresis, Pancreatic mass Forms Stand Alone Forms: My [facility] Prescriptions Prescriptions: No Action atorvastatin 10 mg tablet 10 mg PO QPM albuterol sulfate 90 mcg/actuation HFA aerosol inhaler See Rx Instructions .ROUTE .COMPLEX Qty: 3 3RF Dose Instruction: INHALE 2 PUFFS EVERY 4 HOURS NEEDED Rx Instructions: INHALE 2 PUFFS EVERY 4 HOURS NEEDED- ProAir HFA fenofibrate 160 mg tablet 160 mg PO PM losartan 50 mg tablet 75 mg PO PM pantoprazole 40 mg tablet,delayed release (DR/EC) 40 mg PO QAM fluticasone propion-salmeterol 250-50 mcg/dose blister with device 1 inh inhalation BID Rx Instructions: USE 1 INHALATION TWICE A DAY multivitamin Tablet 1 tab PO DAILY loratadine [Claritin] 10 mg Tablet 10 mg PO QAM Emergen-C 1,000 mg Powder Effervescent In Packet 1 ea PO DAILY Glucosamine Chondroitin 550-30-1 mg Capsule 1 cap PO DAILY montelukast 10 mg tablet 10 mg PO DAILY PRN (Reason: Congestion) Referrals Referrals: Severiano Matthews MD [Primary Care Provider] - Discharge Problem: Chest pain Qualifiers: Chest pain type: unspecified Qualified Code(s): R07.9 - Chest pain, unspecified Abdominal pain Qualifiers: Abdominal location: left upper quadrant Qualified Code(s): R10.12 - Left upper quadrant pain
[2024-03-22] MEDS: SODIUM CHLORIDE 0.9% 1,000 ML IV ONE (20:37)
[2024-03-22 21:13] LABS: D Dimer 1570 ug/L FEU (0-500)
[2024-03-22] MEDS: OPTIRAY 320 125ml IV ONE (21:24)
--- NOTE | 2024-03-22 21:53 | CT Scan Report ---
Exam(s): CTA CHEST IV Amt: 118 cc opti 320 EXAM: CT Angiography Chest With Intravenous Contrast CLINICAL HISTORY: Reason for exam: PE. TECHNIQUE: Axial computed tomographic angiography images of the chest with intravenous contrast. CTDI is 11.87 mGy and DLP is 5.94 mGy-cm. Automated exposure control was utilized for the study. A dose lowering technique was utilized adhering to the principles of ALARA. MIP reconstructed images were created and reviewed. COMPARISON: CTA chest 10/26/2023 FINDINGS: Pulmonary arteries: Unremarkable. No pulmonary embolism. Aorta: No acute findings. Normal caliber. No dissection. Lungs: Unremarkable. Pleural space: Unremarkable. Heart: Unremarkable. Bones/joints: No acute fracture. Soft tissues: Unremarkable. Lymph nodes: Unremarkable. Liver: Multiple cysts within the liver. IMPRESSION: No acute findings in the visualized arteries of the chest. Electronically signed by: Lc Graham MD 03/22/24 21:52 PM
--- NOTE | 2024-03-22 21:58 | CT Scan Report ---
Exam(s): CTA ABDOMEN + PELVIS With Contrast IV Amt: 118 cc opti 320 EXAM: CT Angiography Abdomen and Pelvis With Intravenous Contrast CLINICAL HISTORY: Reason for exam: hx of splenic infarct. TECHNIQUE: Axial computed tomographic angiography images of the abdomen and pelvis with intravenous contrast. CTDI is 31 mGy and DLP is 1438.63 mGy-cm. Automated exposure control was utilized for the study. A dose lowering technique was utilized adhering to the principles of ALARA. MIP reconstructed images were created and reviewed. CONTRAST: Patient received 118 cc opti 320 of IV contrast COMPARISON: CT abdomen pelvis 03/22/2024 FINDINGS: VASCULATURE: Aorta: No acute findings. No abdominal aortic aneurysm. No dissection. Celiac trunk and mesenteric arteries: No acute findings. No occlusion or significant stenosis. Renal arteries: No acute findings. No occlusion or significant stenosis. Iliac arteries: No acute findings. No occlusion or significant stenosis. Lung bases: Unremarkable. No mass. No consolidation. ABDOMEN: Liver: Multiple cysts in the liver. Gallbladder and bile ducts: Cholecystectomy. No ductal dilation. Pancreas: Heterogeneous mass in the tail of the pancreas measuring approximately 3.1 x 2.5 cm. Potentially a pseudocyst containing debris. No ductal dilation. Spleen: No splenic infarct. Adrenals: Unremarkable. No mass. Kidneys and ureters: Unremarkable. No hydronephrosis. No solid mass. Stomach and bowel: Varices in the left upper quadrant and within the gastric fundus. No obstruction. No mucosal thickening. PELVIS: Appendix: No findings to suggest acute appendicitis. Bladder: Unremarkable. No mass. Reproductive: Unremarkable as visualized. ABDOMEN and PELVIS: Intraperitoneal space: Unremarkable. No significant fluid collection. No free air. Bones/joints: No acute fracture. No dislocation. Soft tissues: Unremarkable. Lymph nodes: Unremarkable. No enlarged lymph nodes. IMPRESSION: 1. No splenic infarct. 2. Heterogeneous mass in the tail of the pancreas measuring approximately 3.1 x 2.5 cm. Potentially a pseudocyst containing debris. Consider MRI abdomen deferred definitive characterization. 3. Varices in the left upper quadrant and within the gastric fundus. Electronically signed by: Lc Graham MD 03/22/24 21:57 PM
--- NOTE | 2024-03-22 23:45 | History & Physical Report ---
Date of Service March 22, 2024 Assessment & Plan (1) Chest pain: Plan: - Etiology of current pain cardiac vs GI - CTA negative for pulmonary embolism - EKG without ischemic changes and negative troponin - defer aspirin given history of GI bleeding with aspirin - TTE pending - Last stress test 11/2023 with some ischemic changes on EKG, but negative stress echo - could consider consult cardiology-> atypical chest pain with EKG changes with last stress test (2) Abdominal pain: Plan: - Etiology of current pain GI vs cardiac - No findings on imaging to explain current pain - Total Bilirubin= 1.5 with history of fatty liver; no transaminitis - On pantoprazole 40mg daily-> could consider increasing to BID (3) Pancreatic mass: Plan: - again noted on imaging; has been following with [facility] (4) Diaphoresis: Plan: - occurs with pain that he was been taking - no infectiosus symptoms - mild leukocytosis 12.83; likely reactive as no acute signs of infection-> will trend (5) Anemia: Plan: - Hbg stable at 13.9 - [facility] Plan Chronic Medical Conditions: HTN- continue home mediations HLD/MATHIS- continue home mediations Asthma- continue home inhalers Admission and Anticipated Discharge Date Admission Date: Diet: Heart Healthy Dispo: Tele VTE prophylaxis: SCD, defer chemical given history of anemia secondary to anticoagulation Code: Full History of Present Illness Primary Care Provider: Severiano Matthews MD 68 year old male with a past medical history of Factor V Leiden, Fatty liver, HLD, HTN, Anemia, GERD with Lloyd's esophagus, pancreatic pseudocyst, chronic splenic vein occlusion with varices presenting with left sided chest pain. Has been going on for last 2-3 weeks. Intermittent- a few times per day for few minutes to an hour. Left sided lower ribs, radiates to back and left shoulder. Had an episode tonight while driving on his way to go mountain bike which prompted him to come in. Pain is not exertional. Gets diaphoresis with pain, denies dyspnea. Rides bike few times per week- no symptoms during. Not related to food. Has not had pain like this in the past. Notes that he has had work-up for chest pain in the past- most recent stress test 11/2023-> Positive stress ECG for ischemia at 99% MPHR, with 1-1.[address] depression in II, III, AVF, and V4-6. Likely false positive ECG, considering rapid resolution. Following with GI for Pancreatic cyst-> likely secondary to a previous bout of pancreatitis, something anderson to a pseudocyst. ED course Significant for: EKG with NSR, no ischemic changes. Troponin 6-> 7.4. D-Dimer 1570 CTA Chest without pulmonary embolism. CTA A&P with pancreatic pseudocyst, no splenic infarct, varices LUQ/gastric fundus. Allergies Allergy/AdvReac Type Severity Reaction Status Date / Time Penicillins Allergy Severe ITCHING Verified 11/22/23 10:35 Home Medications Medication Instructions Recorded Confirmed Type fenofibrate 160 mg tablet 160 mg PO PM 01/31/19 11/22/23 History losartan 50 mg tablet 75 mg PO PM 01/31/19 11/22/23 History atorvastatin 10 mg tablet 10 mg PO QPM 12/04/21 11/22/23 History fluticasone 250 mcg-salmeterol 50 1 inh inhalation BID 06/09/23 11/22/23 History mcg/dose blistr powdr for inhalation pantoprazole 40 mg tablet,delayed 40 mg PO QAM 06/09/23 11/22/23 History release ascorbic acid 1,000 1 ea PO DAILY 10/11/23 11/22/23 History pp-vwaunytivbxe-nddiadra powder effervescent pack (Emergen-C) glucosamine sulf dipot 1 cap PO DAILY 10/11/23 11/22/23 History chlr,msm,chond 550 mg-C 30 mg-bridger 1 mg capsule (Glucosamine Chondroitin) loratadine 10 mg tablet (Claritin) 10 mg PO QAM 10/11/23 11/22/23 History montelukast 10 mg tablet 10 mg PO DAILY PRN Congestion 10/11/23 11/22/23 History multivitamin 1 tab PO DAILY 10/11/23 11/22/23 History albuterol sulfate 90 mcg/actuation See Rx Instructions .Route 02/25/24 02/25/24 Rx aerosol inhaler .COMPLEX #3 Inhalers Past Med/Surg History Problem List (Updated 03/23/24 @ 04:44 by Le Bautista DO) Anemia Pancreatic mass (Acute) Diaphoresis (Acute) Abdominal pain (Acute) Chest pain (Acute) Bilateral shoulder pain Wheezing Cough Dyspnea Mild persistent asthma, uncomplicated Post-traumatic osteoarthritis of right knee Bilateral tinnitus Sensorineural hearing loss (SNHL) of both ears Cervical radiculopathy (Acute) Asthma (Acute) Hypertension (Acute) 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 Last Hyperlipidemia Hypertension History of kidney stones passed on own History of esophageal reflux Factor 5 Leiden mutation, heterozygous was on aspirin 81mg, stopped approx 1 year ago due to stomach issues Asthma res inh use prior to exercise Surgical History History of carpal tunnel release left History of colonoscopy History of esophagogastroduodenoscopy (EGD) History of tonsillectomy Hx of cervical discectomy and fusion > side to side ROM is somewhat limited History of arthroscopy of right knee Status post trigger finger release x several H/O shoulder surgery bilat arthroscopic History of bilateral inguinal hernia repair Family History Unknown Allergic rhinitis Factor V Leiden mutation Father Hypertension Cancer Colon cancer Mother Cancer Social History Smoking Status: Never smoker Second Hand Exposure: Yes (mother smoked); Do You Dip or Chew Tobacco: No; Hx Alcohol Use: Yes Alcohol type: beer Hx Substance Use: No Preferred Language: Faroese Communication Ability: Effective Hot Kettle Tender Required: No Beliefs That Will Affect Care: None Current Living Situation: Spouse Other Information That Helps Us Care for You: No Feels Safe at Home: Yes Safety Concerns: Feels Safe At This Time Assistive Devices: Glasses Review of Systems Review of Systems: As per above Physical Exam Physical Exam: Constitutional: well-appearing, no acute distress HEENT: NCAT, no conjunctival injection CV: regular rhythm, no murmur appreciated, extremities well-perfused, no LE edema Resp: CTABL, no wheezes/rales/rhonchi appreciated, no increased work of breathing GI: soft, nondistended, mild left sided tenderness without rebound/guarding MSK: no gross deformities appreciated Skin: warm, dry, no rash appreciated Neuro: alert, oriented, no focal neurologic deficit appreciated Results & Data Results & Data Vital Signs (Past 12 Hours) Vital Signs Temp Pulse Pulse Resp BP BP Pulse Ox 03/22/24 21:00 72 16 164/69 H 99 03/22/24 19:51 77 18 131/68 98 03/22/24 18:27 36.6 C 84 20 156/75 H 98 O2 Del Method 03/22/24 21:00 Room Air 03/22/24 19:51 Room Air 03/22/24 18:27 Room Air Supervising Physician Co-Signing Physician Notes Attending addendum: I have physically seen this patient, have supervised the medical residents activities, and agree with the H&P unless as otherwise noted. Assessment and Plan: Atypical chest pain- The patient will be admitted to telemetry for serial cardiac enzymes, serial EKG's, cardiac rhythm monitoring and a 2-D echocardiogram with Dopplers. CTA chest negative for PE or other signs of infection EKG negative for ischemia Negative troponin with follow-ups scheduled Treadmill stress test with ischemic changes on 11/25, but negative follow-up stress echo The patient will be admitted to telemetry for serial cardiac enzymes, serial EKG's, cardiac rhythm monitoring and a 2-D echocardiogram with Dopplers. Abdominal pain/pancreatic mass/pancreatic pseudocyst- Mass has been noted and followed by [facility] Patient also noted to have fatty liver Chronic splenic vein thrombosis/varices left upper quadrant and gastric fundus/factor V Leiden- CTA abdomen and pelvis without comment regarding splenic vein thrombosis, not currently on anticoagulation Followed by outpatient physicians, and reports are nonprogression Hyperlipidemia- Continue atorvastatin and fenofibrate Check a fasting lipid panel Resident Activity Tracking Resident Involvement: Resident Care Provided Care Provided: Adult Hospital Medicine (1) Chest pain Chest pain type: unspecified Qualified Code(s): R07.9 - Chest pain, unspecified (2) Abdominal pain Abdominal location: left upper quadrant Qualified Code(s): R10.12 - Left upper quadrant pain
[2024-03-23 01:50] VITALS: RESP 18
[2024-03-23] MEDS ORDERED: ACETAMINOPHEN 325 MG TAB PO PRN (01:50)
--- NOTE | 2024-03-23 06:00 | Billing Data ---
Date of Service March 23, 2024 Coding Level of Care Code 39612 INT INP/OBS CARE
--- NOTE | 2024-03-23 07:27 | XRay Report ---
XR chest 1V portable HISTORY: 68 years-old Male abd/chest pain acute left-sided chest pain COMPARISON: CTA chest of same day TECHNIQUE: AP view of the chest FINDINGS: Cardiomediastinal and hilar silhouettes are within normal limits. Cervical spinal fusion hardware. Hina ngs are clear. No pneumothorax or pleural effusion. IMPRESSION: No acute process. ACT 112: Negative or not required by law. The above report was generated using voice recognition software. It may contain grammatical, syntax o r spelling errors. Electronically signed by: Lee Joe M.D. 03/23/2024 7:26 AM
[2024-03-23 07:35] LABS: Albumin Level 4.1 gm/dl (3.4-5.0); Bilirubin,Total 1.1 mg/dl (0.2-1.0); Calcium 8.8 mg/dl (8.6-10.3); Creatinine Clr Calc Pharmacy 91.2 ml/min; Est GFR (African American) 109.2 ml/min; Est GFR (Non-African American) 94.3 ml/min; Magnesium 2.3 mg/dl (1.7-2.4); Potassium 3.6 mmol/L (3.5-5.1); Total Protein 6.1 gm/dl (6.0-8.3)
[2024-03-23 07:48] LABS: Basophils # (auto) 0.03 K/uL (0.00-0.20); Basophils % (auto) 0.5 %; Eosinophils % (auto) 1.8 %; Hemoglobin 12.2 g/dl (14.0-18.0); Immature Granulocytes # (auto) 0.06 K/uL (0.01-0.20); Immature Granulocytes % (auto) 1.1 %; Lymphocytes # (auto) 1.42 K/uL (1.20-3.40); Lymphocytes % (auto) 25.8 %; Mean Corpuscular Hemoglobin 27.8 pg (25.0-34.0); Mean Corpuscular Hgb Conc 34.9 g/dL (32.0-36.0); Mean Corpuscular Volume 79.7 fL (80.0-100.0); Mean Platelet Volume 9.8 fL (9.4-12.4); Monocytes # (auto) 0.44 K/uL (0.11-0.59); Neutrophils # (auto) 3.46 K/uL (1.40-6.50); Neutrophils % (auto) 62.8 %; Platelet Count 93 K/uL (130-400); Platelet Estimate Decreased (Normal); RDW Standard Deviation 43.2 fL (36.4-46.3); Red Blood Count 4.39 M/uL (4.70-6.10); White Blood Count 5.51 K/ul (4.8-10.8)
[2024-03-23] MEDS ORDERED: PANTOprazole 40 MG in SYRINGE 0 ML IV SCH (09:00)
[2024-03-23] MEDS ORDERED: NON-FORMULARY MEDICATION (Glucos Sul 2kcl-Msm-Chond-C-Mn [Glucosamine Chondroitin] 550-30- PO SCH (09:00)
[2024-03-23] MEDS: FLUTICASONE/VILANTEROL 100/25MCG 14 PUFFS/INHALER INH SCH (09:21)
[2024-03-23] MEDS: LORATADINE 10 MG TAB PO SCH (09:21)
[2024-03-23] MEDS: PANTOprazole 40 MG TAB PO SCH (09:21)
--- NOTE | 2024-03-23 09:27 | Electrocardiogram Report ---
Test Reason : Blood Pressure : */* mmHG Vent. Rate : 69 BPM Atrial Rate : 69 BPM P-R Int : 178 ms QRS Dur : 98 ms QT Int : 378 ms P-R-T Axes : 63 58 48 degrees QTcB Int : 405 ms Normal sinus rhythm Normal ECG When compared with ECG of 08-Jun-2023 21:37, No significant change was found Confirmed by Rabia Fernandes (Farideh) on 03/23/2024 9:26:50 AM Referred By: REFERRED SELF Confirmed By: Rabia Fernandes
--- OUTSIDE RECORDS SUMMARY | 2024-03-23 09:31 | External Medical Summary | Continuity of Care Document ---
Author Name Unknown Organization [facility] [address] [facility] [address] [id number] Care Team Providers Care Clerical Assistant Name Role Phone Byron, Severiano Primary Care Physician [phone] Encounter [facility] [id number] Date(s): 03/14/24 - 03/14/24 [facility] [address] [facility] [address] 1 [facility] [address] [facility] [place], [place] [phone] Encounter Diagnosis Becker's esophagus without dysplasia(Final) - Fatty (change of) liver, not elsewhere classified(Final) - Anemia, unspecified(Final) - Other fecal abnormalities(Final) - Discharge Disposition: Home or Self Care Attending Physician: SETH Carvalho Kelli Jo Referring Physician: SETH Carvalho Kelli Jo Allergies, Adverse Reactions, Alerts Substance Criticality Severity Reaction Reaction Severity Status Dust Asthma Active Dust mite Asthma Active Trees Asthma Active PCN (penicillin) Itching Act alfa Immunizations Given and Recorded Vaccine Date Status Refusal Reason tetanus/diphtheria/pertuss, acel (Tdap) 02/09/23 G iven tetanus/diphtheria/pertuss, acel (Tdap) 05/12/12 G iven tetanus/diphtheria/pertuss, acel (Tdap) 1 10/20/06 Recorded pneumococcal 20-valent conjugate vaccine 08/11/22 Given pneumococcal 23-valent vaccine 07/23/21 Given pneumococcal 23-valent vaccine 05/12/12 Given influenza virus vaccine, inactivated 04/18/20 Timo rded influenza virus vaccine, inactivated 05/05/19 Give n influenza virus vaccine, inactivated 05/09/18 Give n influenza virus vaccine, inactivated 04/04/16 Timo rded influenza virus vaccine, inactivated 05/20/15 Give n influenza virus vaccine, inactivated 05/05/14 Timo rded influenza virus vaccine, inactivated 03/31/13 Give n influenza virus vaccine, inactivated 05/12/12 Give n zoster vaccine live 2 12/16/15 Given pneumococcal 13-valent vaccine 11/12/15 Given tetanus toxoids-diphtheria, Td (Adult) 3 07/05/95 Recorded 1Result Comment: 2020-04-19: Historical information-source unspecified 2Early/Late Reason: Patient Not Available/Off Unit 3Result Comment: 2020-04-19: Historical information-source unspecified Medications Advair Diskus 500 mcg-50 mcg Start: 10/19/16 8:03:00 AM EDT, 1 puff, PO, bid, Disp# 1 inhaler Start Date: 10/19/16 Stop Date: 11/18/16 Status: Ordered Airborne Everyday Gummies oral tablet, chewable Start: 07/11/21 2:40:00 PM EST Start Date: 07/11/21 Status: Ordered atorvastatin 10 mg oral tablet Start: 07/12/23 4:26:00 PM EST, 1 tab, PO, Daily, Disp# 90 tab, Refills: 3, [facility] Start Date: 07/12/23 Status: Ordered Centrum Ultra Men's Start: 04/22/21 3:19:00 PM EDT Start Date: 04/22/21 Status: Ordered Emergen-C Start: 07/11/21 2:40:00 PM EST Start Date: 07/11/21 Status: Ordered fenofibrate 160 mg oral tablet Start: 07/13/23 8:36:00 PM EST, See Instructions, Disp# 90 tab, Refills: 3, TAKE 1 TABLET DAILY, Pharmacy: [facility] Start Date: 07/13/23 Status: Ordered glucosamine Start: 04/22/21 3:19:00 PM EDT Start Date: 04/22/21 Status: Ordered loratadine 10 mg oral tablet Start: 02/09/23 10:38:00 AM EDT, 1 tab, PO, Daily, PRN: as needed for allergy symptoms Start Date: 02/09/23 Status: Ordered losartan 50 mg oral tablet Start: 06/25/23 3:23:00 PM EST, 1.5 tab, PO, Daily, Disp# 135 tab, Refills: 3, Pharmacy: [facility] Start Date: 06/25/23 Status: Ordered pantoprazole 40 mg oral delayed release tablet Start: 10/26/23 2:43:00 PM EDT, 1 tab, PO, Daily, Disp# 90 tab, Refills: 4, [facility] Start Date: 10/26/23 Status: Ordered Ventolin HFA 90 mcg/inh inhalation aerosol Start: 04/05/15 5:38:53 PM EDT, 2 puff, inhaled, qid, Disp# 3 each, Refills: 3, PRN: as needed for wheezing, [facility]acy[facility] Start Date: 04/05/15 Stop Date: 03/30/16 Status: Ordered Problem List Condition Confirmation Course Effective Dates Status H ealth Status Informant Allergic rhinitis due to pollen Confirmed Active Asthma 1 Confirmed Active Becker's esophagus without dysplasia Confirmed Active Bilateral tinnitus Confirmed Active Urinary hesitancy Confirmed Active Pancreatic lesion Confirmed Active Factor V Leiden mutation 2 Confirmed Active Hyperlipidemia Confirmed Active Hypertension Confirmed Active Kidney stone Confirmed Active Neck pain 3 Confirmed Active Numbness 4 Confirmed Active Right hand weakness 5 Confirmed Active Fatty liver Confirmed Active Tingling Confirmed Active 1sees Dr. Gomez 2heterozygous 3sees Dr. Kuo 4hands. hronic 5due to cervical spinal stenosis Procedures Procedure Date Related Diagnosis Body Site Status EGD - esophagogastroduodenoscopy 1 09/16/23 Completed Capsule endoscopy 2 11/03/22 Compl eted Esophagogastroduodenoscopy 3 10/02/22 Completed US abdominal scan 4 09/15/22 Compl eted Colonoscopy 5 08/26/22 Completed Seen by audiology service 6 10/31/21 Completed EMG - Electromyography 7 07/31/21 Completed Cervical spine X-ray 8 06/04/21 Co mpleted Cholecystectomy 9 03/20/18 Complet ed Pathology 10 09/09/17 Completed UPPER GI ENDOSCOPY PERFORMED 11 09/08/17 Completed Ultrasound scan of gallbladder 12 08/04/17 Completed X-ray of abdomen 13 08/04/17 Compl eted Colonoscopy 14, 15 07/16/17 Comple socorro CXR - Chest X-ray 16 10/10/16 Comp leted HIDA scan 17 09/28/16 Completed Ultrasound scan RUQ 18 09/04/16 Co mpleted X-ray of fingers--left third finger 19 02/11/16 Completed H/O carpal tunnel repair 20 09/29/13 Completed cervical spine fusion Com pleted Colonoscopy Completed right and left hernia repair Completed right and left shoulder surgical repair Completed right knee surgery Comple socorro 1- Normal esophagus. - A single submucosal papule (nodule) found in the stomach. - Gastritis. - Normal examined duodenum. - No specimens collected. - Return to physician starch treating assistant at appointment to be scheduled. Consider EUS of this area although may be difficult to directly approach due to location 2Normal exam. 3EGD irreg Z line bx, 1 cm HH, 2nd duod nl bx, antrum nl bx, gastric polyps bx 4IMPRESSION: No acute abnormalities. hepatic steatosis is noted. 5Impression: One 2 mm polyp in the cecum, removed with a jumbo cold forceps. Resected and retrieved. One 2 mm polyp in the transverse colon, removed with a jumbo cold forceps. Resected and retrieved. Recommendations: Repeat colonoscopy in 5 years for surveillance. 61. sensorineural hearing loss of both ears 2. bilateral tinnitus 7Diagnosis: Cervical radiculopathy 8stable cervical fusion with no gross changes 9laparoscopic cholecystectomy 10There is no evidence of celiac sprue, Giardia, or Whipple's disease on Alcian Blue/PAS stain. 11Z-line regular, 44cm from the incisors. Ectopic gastric mucosa at the cricopharyngeus. A few gastric polyps. Normal second portion of the duodenum. Biopsied. Await pathology. 121, Hepatic steatosis and mild hepatomegaly. Correlated with liver function enzymes to exclude steatohepatitis as a cause for abdominal pain. 2. gallbladder sludge. No biliary ductal dilatation. 3. Apparent heterogeneity of the visualized portion of the pancrease. This is nonspecific. Correlate with lipase to exclude pancreatitis. 131. No acute cardiopulmonary disease. 2. No radiographic evidence of acute intra-abdominal pathology. [id number]: normal. repeat in 5 years. 15Repeat in 5 yrs for surveillance 16No active disease in chest. 17Normal study, No evidence of cystic duct obstruction. Normal gallbladder ejection fraction 97% 18No acute sonographic abnormality is identified. No gallstones are seen. Hepatic steatosis. 191) No acute bony abnornality seen in the left third finger. 2) A tiny radiodense/metallic foreign body is suggested in the tip of the third finger as above. 20Left wrist Results Laboratory List Name Date Complete Blood Count (CBC) 03/14/24 Most recent to oldest [Reference Range]: 1 MPV [9.0-12.2 fL] 9.5 fL (03/14/24 2:05 PM) RDW [11.5-14.2 %] 14.8 % *HI* (03/14/24 2:05 PM) Hct [39-48 %] 36.3 % *LOW* (03/14/24 2:05 PM) Hgb [13.0-17.0 g/dL] 12.5 g/dL *LOW* (03/14/24 2:05 PM) MCH [28-33 pg] 28.2 pg (03/14/24 2:05 PM) MCHC [32-36 g/dL] 34.4 g/dL (03/14/24 2:05 PM) MCV [81-96 fL] 81.9 fL (03/14/24 2:05 PM) Plts [150-350 K/uL] 143 K/uL *LOW* (03/14/24 2:05 PM) RBC [4.40-5.60 M/uL] 4.43 M/uL (03/14/24 2:05 PM) WBC [4.0-10.4 K/uL] 4.46 K/uL (03/14/24 2:05 PM) Social History Social History Type Response Smoking Status Never smoked cigaret estrella Sex Male Sex Representation Male (finding) Patient Care team information Care Team Personnel Name: MD Matthews Juan Position: Physician - Family Med Member Role: Primary Care Provider [address]: [address] [place] [address], [address] Care Team Related Persons Name: KISHA GARCÍA
[2024-03-23 11:12] VITALS: PULSE 65; TEMP 98.6; O2SAT 98
--- NOTE | 2024-03-23 11:26 | Cardiology Consultation ---
Date of Consultation March 23, 2024 Assessment & Plan (1) Atypical chest pain: (2) Left upper quadrant pain: (3) Gastric varices: (4) Thrombocytopenia: (5) Anemia: 68-year-old man with history of gastric and splenic abnormalities describes left upper quadrant/left lower thorax sharp intermittent pain occurring recently. The brevity, severity, and location of his symptoms are all suggestive of an intra-abdominal rather than cardiac process. Given that he has gastric, splenic, and pancreatic abnormalities, it seems much more likely that the etiology of his symptoms are gastrointestinal rather than cardiac. His abrupt drop in platelet count in the absence of receiving heparin or other new agent suggests the possibility of splenic sequestration and should be further evaluated. ECG, echo, and enzymes completely unremarkable, he had a negative stress study earlier this year. False positive ECG findings during stress are exactly that, false positive, as indicated by normal post exercise echo and transient nature of ECG changes, as well as the fact that he had no chest pain during the stress study. Absence of symptoms during high workload such as mountain biking is essentially up repeat stress study without evidence of angina or myocardial ischemia. Would pursue further gastrointestinal evaluation (such as abdominal MRI), no need for further cardiac workup in the absence of more characteristic or progressive symptoms. Routine cardiology follow-up with Dr. Last, he has seen him in the past. History of Present Illness Reason for Consultation: chest pain/ changes to stress test 11/25 Requesting Physician: Emiliano Mustafa Attending Physician: Emiliano Mustafa History of Present Illness 68-year-old man with history of "mitral valve prolapse", no other cardiac history who presents with very atypical left-sided chest and upper abdominal discomfort, normal troponin, and unremarkable ECG. Past medical history also includes factor V Leiden, fatty liver with gastric varices, GERD with Becker's esophagus, pancreatic pseudocyst, chronic splenic vein occlusion, dyslipidemia, chronic unexplained anemia (receives iron infusions) and hypertension. Over the past several weeks, he has had 3 separate episodes of severe left lower anterior thorax/left upper quadrant sharp discomfort lasting a minute or two, radiating to his left shoulder. Each episode occurred at rest, the episode yesterday which prompted ER evaluation, occurred while he was driving. He notes associated diaphoresis but no anterior chest pain, palpitations, lightheadedness, presyncope, or syncope. 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 Earlier this year, he had a separate type of mild chest discomfort at high workloads and underwent a stress echocardiogram, he went for 11 minutes of Eloy protocol achieving 99% maximum predicted heart rate with no echocardiographic abnormalities and only transient ECG changes which were felt to be false positive. He has not noted any chest discomfort when mountain biking recently. At the time of my evaluation this morning, he had no somatic complaints. Allergies Allergy/AdvReac Type Severity Reaction Status Date / Time Penicillins Allergy Severe ITCHING Verified 11/22/23 10:35 Home Medications Medication Instructions Recorded Confirmed Type fenofibrate 160 mg tablet 160 mg PO PM 01/31/19 03/23/24 History losartan 50 mg tablet 75 mg PO PM 01/31/19 03/23/24 History atorvastatin 10 mg tablet 10 mg PO QPM 12/04/21 03/23/24 History fluticasone 250 mcg-salmeterol 50 1 inh inhalation BID 06/09/23 03/23/24 History mcg/dose blistr powdr for inhalation pantoprazole 40 mg tablet,delayed 40 mg PO QAM 06/09/23 03/23/24 History release ascorbic acid 1,000 1 ea PO DAILY 10/11/23 03/23/24 History mw-sfjwmcswkzeh-qeklmpel powder effervescent pack (Emergen-C) glucosamine sulf dipot 1 cap PO DAILY 10/11/23 03/23/24 History chlr,msm,chond 550 mg-C 30 mg-bridger 1 mg capsule (Glucosamine Chondroitin) loratadine 10 mg tablet (Claritin) 10 mg PO QAM 10/11/23 03/23/24 History montelukast 10 mg tablet 0 mg PO DAILY PRN Congestion 10/11/23 03/23/24 History multivitamin 1 tab PO DAILY 10/11/23 03/23/24 History albuterol sulfate 90 mcg/actuation See Rx Instructions .Route 02/25/24 03/23/24 Rx aerosol inhaler .COMPLEX #3 Inhalers Patient History Medical History Environmental allergies BPH (benign prostatic hyperplasia) no meds History of GI bleed protonix for this per pt, nothing for over a month now 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 Last Hyperlipidemia Hypertension History of kidney stones passed on own History of esophageal reflux Factor 5 Leiden mutation, heterozygous was on aspirin 81mg, stopped approx 1 year ago due to stomach issues Asthma res inh use prior to exercise Surgical History History of carpal tunnel release left History of colonoscopy History of esophagogastroduodenoscopy (EGD) History of tonsillectomy Hx of cervical discectomy and fusion > side to side ROM is somewhat limited History of arthroscopy of right knee Status post trigger finger release x several H/O shoulder surgery bilat arthroscopic History of bilateral inguinal hernia repair Family History Unknown Allergic rhinitis Factor V Leiden mutation Father Hypertension Cancer Colon cancer Mother Cancer Social History Smoking Status: Never smoker Second Hand Exposure: Yes (mother smoked); Do You Dip or Chew Tobacco: No; Hx Alcohol Use: Yes Alcohol type: beer Hx Substance Use: No Preferred Language: Czech Communication Ability: Effective Submarine Element Coordinator Required: No Beliefs That Will Affect Care: None Current Living Situation: Spouse Feels Safe at Home: Yes Assistive Devices: Glasses Physical Exam Physical Exam: Normal habitus adult white male in no distress. Afebrile. BP 129/66 mmHg. Pulse 65 bpm regular. Respirations 18 unlabored Skin: no ecchymoses or generalized lesions. HEENT: unremarkable. Neck: JVP at the clavicle at 90 degrees, no carotid bruits. Lungs: clear. Cardiac: regular rhythm, normal S1-2, 2/6 apical systolic murmur which is nonradiating, no diastolic murmur. Abdomen: benign. Extremities: no edema, pulses intact. Neurologic: normal affect and conversation, nonfocal. Results & Data Vital Signs (Past 12 Hours) Vital Signs Temp Pulse Pulse Resp BP Pulse Ox O2 Del Method 03/23/24 11:11 98.6 F 65 18 129/66 98 Room Air 03/23/24 08:45 98.2 F 86 18 129/68 91 Room Air 03/23/24 07:07 58 L 03/23/24 02:10 61 03/23/24 02:00 Room Air 03/23/24 01:46 97.9 F 62 18 152/65 H 98 Room Air Laboratory Results Troponin 6.0 and 7.4. Hemoglobin 12.2 with normal white count, platelet count 93,000. D-dimer 1570. Normal electrolytes, BUN 18, creatinine 0.75. Magnesium 2.3. Normal transaminases. Diagnostic Findings ECG showed sinus rhythm at 69 bpm and was completely unremarkable. Echocardiogram showed normal LV size and systolic function (EF 60 to 65%) with mild LVH and normal wall motion. Mildly dilated left atrium with grade 1 diastolic dysfunction, no significant valvular disease. Chest x-ray unremarkable. Chest CT unremarkable. Abdomen/pelvic CT showed no splenic infarct, did show heterogeneous mass tail of the pancreas potentially pseudocyst, varices left upper quadrant within the gastric fundus. PG Care Time/CCT Total # of Minutes Spent Total Time Spent with Patient: Total time spent is greater than 50% in coordination of care (as documented) at patient's floor/unit and/or counseling patient: Coding Level of Care Code 68755 IN/OBS CONSULT LVL 4,60M Diagnoses Atypical chest pain R07.89 Left upper quadrant pain R10.12 Gastric varices I86.4 Thrombocytopenia D69.6 Anemia D64.9
[2024-03-23 13:15] LABS: Hemoglobin 12.9 g/dl (14.0-18.0); Mean Corpuscular Hemoglobin 28.2 pg (25.0-34.0); Mean Corpuscular Hgb Conc 35.8 g/dL (32.0-36.0); Mean Corpuscular Volume 78.8 fL (80.0-100.0); Mean Platelet Volume 9.7 fL (9.4-12.4); Platelet Count 129 K/uL (130-400); RDW Standard Deviation 42.6 fL (36.4-46.3); Red Blood Count 4.57 M/uL (4.70-6.10); White Blood Count 6.49 K/ul (4.8-10.8)
--- NOTE | 2024-03-23 13:40 | Discharge Summary ---
Discharge Summary Date of Service March 23, 2024 Principal Dx & Hospital Course #1 = Principal Diagnosis (1) Chest pain: Patient presented to the ED on 03/22 with complaints of left upper abdominal pain with radiation to his back and left shoulder. CTA was negative for PE. EKG was w/o ischemic changes and negative troponin x 2. TTE revealed mild concentric LVH, basal septum thickened and angulated consistent with sigmoid septum, LV normal size, left atrium mildly dilated, grade 1 diastolic dysfunction. Cardiology was consulted who deemed his pain he was experiencing was likely not cardiac in nature. CBC on 03/23 did reveal drop in platelet count but upon recheck, improved. Patient discharged home w/ close follow up w/ PCP. Possible musculoskeletal in origin. Patient has abdominal MRI set up for May which hs is encouraged to follow up with. Patient has not had any further episodes of pain since reporting to the hospital. (2) Abdominal pain: - Etiology of current pain GI vs cardiac - No findings on imaging to explain current pain - Total Bilirubin= 1.5 with history of fatty liver; no transaminitis - On pantoprazole 40mg daily-> patient does not feel symptoms are related to GERD. (3) Pancreatic mass: - again noted on imaging; has been following with [facility] (4) Diaphoresis: - occurs with pain that he was been taking - no infectiosus symptoms - mild leukocytosis 12.83; likely reactive as no acute signs of infection-> WNL on 03/23 (5) Anemia: - Hbg stable at 13.9 - [facility] Plan Chronic Medical Conditions: HTN- continue home mediations HLD/MATHIS- continue home mediations Asthma- continue home inhalers updated at bedside w/ discharge instructions Admission HPI Per Admitting Provider 68 year old male with a past medical history of Factor V Leiden, Fatty liver, HLD, HTN, Anemia, GERD with Lloyd's esophagus, pancreatic pseudocyst, chronic splenic vein occlusion with varices presenting with left sided chest pain. Has been going on for last 2-3 weeks. Intermittent- a few times per day for few minutes to an hour. Left sided lower ribs, radiates to back and left shoulder. Had an episode tonight while driving on his way to go mountain bike which prompted him to come in. Pain is not exertional. Gets diaphoresis with pain, denies dyspnea. Rides bike few times per week- no symptoms during. Not related to food. Has not had pain like this in the past. Notes that he has had work-up for chest pain in the past- most recent stress test 11/2023-> Positive stress ECG for ischemia at 99% MPHR, with 1-1.[address] depression in II, III, AVF, and V4-6. Likely false positive ECG, considering rapid resolution. Following with GI for Pancreatic cyst-> likely secondary to a previous bout of pancreatitis, something anderson to a pseudocyst. ED course Significant for: EKG with NSR, no ischemic changes. Troponin 6-> 7.4. D-Dimer 1570 CTA Chest without pulmonary embolism. CTA A&P with pancreatic pseudocyst, no splenic infarct, varices LUQ/gastric fundus. Discharge Exam Constitutional WD/WN, vitals as above Eyes PERRL, conjunctivae normal, anicteric sclerae Respiratory normal respiratory effort, lungs clear to auscultation Cardiovascular RRR, no murmur, no edema Gastrointestinal (Abdomen) normal bowel sounds, soft, nontender, no hepatosplenomegaly Psychiatric A+Ox3, euthymic affect Discharge Plan Discharge Items Patient Disposition: Home - Self-Care Reason For Visit: FLANK PAIN Discharge Diagnosis: left sided abdominal pain Activity: Resume your previous activity Non-emergency contact: Primary Care Provider Call non-emergency contact if: you have any medication questions, your symptoms worsen and your pain is not controlled Follow-up/Referrals: Severiano Matthews MD [Primary Care Provider] - 03/30/24 2:45 pm Diet: Regular Addtl Attending Provider Instructions: Mr. Beaver, You were hospitalized for left sided abdominal pain. This was atypical in nature and you underwent a cardiac workup that was benign. You were also evaluated by our product evangelist who does not believe it is cardiac in origin. Please see recommendations below regarding your discharge. 1. Please resume outpatient medications as prescribed. 2. If you pain continues, please follow up with your PCP for further workup/medication. (muscle relaxer etc.) 3. Please follow up with your abdominal MRI as scheduled in May. If you develop any worsening pain, fever, chills please report to the ER for further care. Sincerely, Argenis Pearl PA-C Pending Studies at Discharge: No Stand-Alone Forms: My [facility], Smoking Cessation Medications and DC Order Prescriptions: Continued atorvastatin 10 mg tablet 10 mg PO QPM albuterol sulfate 90 mcg/actuation HFA aerosol inhaler See Rx Instructions .ROUTE .COMPLEX Qty: 3 3RF Dose Instruction: INHALE 2 PUFFS EVERY 4 HOURS NEEDED Rx Instructions: INHALE 2 PUFFS EVERY 4 HOURS NEEDED- ProAir HFA fenofibrate 160 mg tablet 160 mg PO PM losartan 50 mg tablet 75 mg PO PM pantoprazole 40 mg tablet,delayed release (DR/EC) 40 mg PO QAM fluticasone propion-salmeterol 250-50 mcg/dose blister with device 1 inh inhalation BID Rx Instructions: USE 1 INHALATION TWICE A DAY multivitamin Tablet 1 tab PO DAILY Rx Instructions: Unable to verify OTC meds at this date/time/. loratadine [Claritin] 10 mg Tablet 10 mg PO QAM Rx Instructions: Unable to verify OTC meds at this date/time/. Emergen-C 1,000 mg Powder Effervescent In Packet 1 ea PO DAILY Rx Instructions: Unable to verify OTC meds at this date/time/. Glucosamine Chondroitin 550-30-1 mg Capsule 1 cap PO DAILY Rx Instructions: Unable to verify OTC meds at this date/time/. montelukast 10 mg tablet 0 mg PO DAILY PRN (Reason: Congestion) Rx Instructions: Unable to verify med with pharmacy/patient at this date time. Original Directions: 10mg by mouth daily PRN Discharge Orders: Discharge Order (Routine); Ordered 03/23/24 Ordered By: Argenis Pearl Admission Data Admit Date/Time: 03/22/24 23:05 Attending Provider: Emiliano Mustafa Admit Provider: Le Bautista Primary Care Provider: Severiano Matthews Other Providers: Madhav Arroyo Other Interventions: Discharge Summary Assessment (RN) Last Done: 03/23/24 14:20 Hospital Stay Data Consultations 03/22/24 22:40 ED Decision to Admit Stat 03/23/24 07:41 Consult Cardiology Routine Diagnostic Imagining Performed 03/22/24 18:32 CT abd pelvis wo con Stat 03/22/24 20:59 CT angio abdomen pelvis w con Stat CT angio chest PE protocol Stat Pending Results Patient Have Any Pending Studies at Discharge: No Discharge Instructions Given to Patient (Per Discharging Provider) Mr. Beaver, You were hospitalized for left sided abdominal pain. This was atypical in nature and you underwent a cardiac workup that was benign. You were also evaluated by our product evangelist who does not believe it is cardiac in origin. Please see recommendations below regarding your discharge. 1. Please resume outpatient medications as prescribed. 2. If you pain continues, please follow up with your PCP for further workup/medication. (muscle relaxer etc.) 3. Please follow up with your abdominal MRI as scheduled in May. If you develop any worsening pain, fever, chills please report to the ER for further care. Sincerely, Argenis Pearl PA-C Total Time Total Time Spent Total Time Spent (In Minutes): 38 Total Time Includes: Examination of the Patient, Discharge Planning and Medication Reconciliation Coding Level of Care Code 05836 INP/OBS DISCH >30 MIN Diagnoses Chest pain R07.9 Chest pain type: unspecified Abdominal pain R10.12 Abdominal location: left upper quadrant Pancreatic mass K86.89 Diaphoresis R61 Anemia D64.9
[2024-03-23 14:20] VITALS: BP 164/69
[2024-03-23] MEDS ORDERED: ATORVASTATIN 10 MG TAB PO SCH (21:00)
[2024-03-23] MEDS ORDERED: LOSARTAN POTASSIUM 25 MG TAB PO SCH (21:00)
[2024-03-23] MEDS ORDERED: FENOFIBRATE NANOCRYSTALLIZED 145 MG TABLET PO SCH (21:00)
== END 2024-03-23 15:36 | disposition home or self-care (01) | DRG 392 ==
LOC: ED 18:19 → INTOOBSV 23:05 → 2N 03-23 01:45 → SUATTDRO 03-23 01:45 → 2N 03-23 02:00

== ENCOUNTER 2024-10-06 10:35 | Observation (INO) ==
--- NOTE | 2024-08-09 13:09 | PAT Medication Instructions ---
Medication Instructions Date of Service August 09, 2024 Home Medications fenofibrate 160 mg tablet 160 mg PO HS losartan 50 mg tablet 75 mg PO HS atorvastatin 10 mg tablet 10 mg PO QPM pantoprazole 40 mg tablet,delayed release 40 mg PO QAM ascorbic acid 1,000 qf-offpmlegcjht-eqibtcxk powder effervescent pack (Emergen- C) 1 ea PO DAILY glucosamine sulf dipot chlr,msm,chond 550 mg-C 30 mg-bridger 1 mg capsule (Glucosamine Chondroitin) 2 cap PO QAM multivitamin 1 tab PO QAM albuterol sulfate 90 mcg/actuation aerosol inhaler 2 puff inhalation UD PRN fexofenadine 180 mg tablet 180 mg PO QAM fluticasone 250 mcg-salmeterol 50 mcg/dose blistr powdr for inhalation 1 inh inhalation BID montelukast 10 mg tablet 10 mg PO DAILY PRN Continue as directed montelukast 10 mg tablet 10 mg PO DAILY PRN(if needed) albuterol sulfate 90 mcg/actuation aerosol inhaler 2 puff inhalation UD PRN(use if needed; please bring with you to hospital day of surgery if possible) STOP taking 2 weeks before surgery (or as soon as possible if surgery is within 2 weeks) glucosamine sulf dipot chlr,msm,chond 550 mg-C 30 mg-bridger 1 mg capsule (Glucosamine Chondroitin) 2 cap PO QAM STOP taking 48 hours before surgery fenofibrate 160 mg tablet 160 mg PO HS DO NOT take the morning of surgery ascorbic acid 1,000 dp-xibcwhqcgdad-upzrbgik powder effervescent pack (Emergen- C) 1 ea PO DAILY multivitamin 1 tab PO QAM fexofenadine 180 mg tablet 180 mg PO QAM Take morning of surgery With a small sip of water, OTHERWISE NOTHING TO EAT OR DRINK AFTER MIDNIGHT: pantoprazole 40 mg tablet,delayed release 40 mg PO QAM fluticasone 250 mcg-salmeterol 50 mcg/dose blistr powdr for inhalation 1 inh inhalation BID Take evening before surgery losartan 50 mg tablet 75 mg PO HS atorvastatin 10 mg tablet 10 mg PO QPM fluticasone 250 mcg-salmeterol 50 mcg/dose blistr powdr for inhalation 1 inh inhalation BID Other Notes If you have any questions please call us at [phone] or [phone] or [phone] or [phone]
--- NOTE | 2024-08-17 12:07 | Anesthesiology Consultation ---
Date of Service August 17, 2024 Assessment & Plan (1) Encounter for pre-operative examination: - Infectious disease screening: Per assessment on 08/17/24- No known recent infectious disease contacts or current infectious disease symptoms. - Outpatient joint assessment: Pt currently scheduled for inpatient pathway. If surgeon requests review for outpatient joint pathway, patient is not recommended candidate for outpatient joint program from anesthesia standpoint based on available information. - Cardiology visit (11/01/23): "..Presents for evaluation of chest pain. He had an ETT in July after an ED visit for htn. There showed a likely false positive and normal blood pressure response.. Mr. Beaver chest pain would be atypical for angina given the extended belly pain after he rests. However, given that it only happens with exertion and he did have an abnormal ETT, I would recommend he have a stress echo to further evaluate. I would also like him to get a resting echo. His blood pressure is under good control.." > Subsequent stress echo 11/2023 with similar normal stress echo findings and likely false positive stress ECG. Rest Echo done 03/2024 unremarkable. Subsequent inpatient cardiac evaluation 03/2024 unremarkable. Patient indicates at PAT visit 08/17/24 that he has had no recent chest pain. He regularly bikes 60 miles per week without cardiopulmonary limiting complaints. - Cardiology [facility] inpatient consult (03/23/24): "68-year-old man with history of gastric and splenic abnormalities describes left upper quadrant/left lower thorax sharp intermittent pain occurring recently. The brevity, severity, and location of his symptoms are all suggestive of an intra-abdominal rather than cardiac process. Given that he has gastric, splenic, and pancreatic abnormalities, it seems much more likely that the etiology of his symptoms are gastrointestinal rather than cardiac. His abrupt drop in platelet count in the absence of receiving heparin or other new agent suggests the possibility of splenic sequestration and should be further evaluated. ECG, echo, and enzymes completely unremarkable, he had a negative stress study earlier this year. False positive ECG findings during stress are exactly that, false positive, as indicated by normal post exercise echo and transient nature of ECG changes, as well as the fact that he had no chest pain during the stress study. Absence of symptoms during high workload such as mountain biking is essentially up repeat stress study without evidence of angina or myocardial ischemia.. no need for further cardiac workup in the absence of more characteristic or progressive symptoms. Routine cardiology follow-up with Dr. Last" Chart Review Chart Review: Acceptable Risk for Surgery (pending evaluation DOS) and Patient seen in Pre Admission Testing Teaching & Discussion Pre-Anesthesia Teaching/Discussion Notes: Instructed NPO after midnight before surgery,except medications with 15 cc of water. Medication instructions provided according to the PAT guidelines. History Surgery Operation Date: 10/06/24 07:00 Proposed Procedures p Right Total Knee Arthroplasty - Bipin Gresham MD Height/Weight Height: 5 ft 8 in Weight: 84.2 kg Allergies Allergy/AdvReac Type Severity Reaction Status Date / Time Penicillins Allergy Severe Itching Verified 08/11/24 14:24 tree nut Allergy Anaphylaxis Verified 08/17/24 12:16 Medications Home Medications Medication Instructions Recorded Confirmed Last Taken fenofibrate 160 mg tablet 160 mg PO HS 01/31/19 08/07/24 Unknown losartan 50 mg tablet 75 mg PO HS 01/31/19 08/07/24 Unknown atorvastatin 10 mg tablet 10 mg PO QPM 12/04/21 08/07/24 Unknown pantoprazole 40 mg tablet,delayed 40 mg PO QAM 06/09/23 08/07/24 Unknown release ascorbic acid 1,000 1 ea PO DAILY 10/11/23 08/07/24 Unknown ch-ueglfyxzbokk-gkhtvvnr powder effervescent pack (Emergen-C) glucosamine sulf dipot 2 cap PO QAM 10/11/23 08/07/24 Unknown chlr,msm,chond 550 mg-C 30 mg-bridger 1 mg capsule (Glucosamine Chondroitin) multivitamin 1 tab PO QAM 10/11/23 08/07/24 Unknown albuterol sulfate 90 mcg/actuation 2 puff inhalation UD PRN SOB 08/07/24 08/07/24 Unknown aerosol inhaler fexofenadine 180 mg tablet 180 mg PO QAM 08/07/24 08/07/24 Unknown fluticasone 250 mcg-salmeterol 50 1 inh inhalation BID 08/07/24 08/07/24 Unknown mcg/dose blistr powdr for inhalation montelukast 10 mg tablet 10 mg PO DAILY PRN allergy season 08/07/24 08/07/24 Unknown Past Medical History Medical History Allergic rhinitis Anemia Chronic, following with CCP Asthma Bilateral shoulder pain Bilateral tinnitus BPH (benign prostatic hyperplasia) No meds Environmental allergies Factor 5 Leiden mutation, heterozygous Previously on aspirin 81mg, stopped ~2022 due to stomach issues 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 No MR. No mitral stenosis. "There is no evidence of mitral valve prolapse." Follows with Dr. 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") Abdomen/Pelvis CTA 03/2024: No splenic infarct Follows with [facility], discussed referral to pain management if needed/desired Exercise / Class Metabolic Activity II 4-5 Yardwork/Stairs/Walk up hill (60 miles/week on bike without issue) Past Family History Family History Unknown Allergic rhinitis Factor V Leiden mutation Father Hypertension Cancer Colon cancer Mother Cancer Past Surgical History Surgical History H/O shoulder surgery R/L arthroscopic History of arthroscopy of right knee History of bilateral inguinal hernia repair History of carpal tunnel release left History of cholecystectomy 2018 History of colonoscopy History of esophagogastroduodenoscopy (EGD) History of tonsillectomy Hx of cervical discectomy + fusion Status post trigger finger release x several Past Anesthesia History No Hx of Anesthesia Complications and No Family Hx of Anesthesia Complications History of PONV No Hx of PONV and No Hx of Motion Sickness Social History Smoking Status: Never smoker Do You Dip or Chew Tobacco: No Hx Alcohol Use: Yes Alcohol type: beer alcohol intake frequency: holidays/special occasions only Hx Substance Use: No substance use type: does not use Review of Systems Patient denies chest pain, shortness of breath, dyspnea on exertion, fever, chills, cough, wheezing, palpitations. Physical Exam Vital Signs BP 120/66 P 64 TEMP 97.9 SP02 97%RA RESP 16 Physical Decreased cervical extension range of motion. Full TMJ range of motion. TMD 3 finger breaths Mallampati Score I Dentition: intact, crowns Lungs: clear throughout to auscultation Cardiac: regular rate and rhythm, no murmurs noted Spine: normal Carotid arteries: negative bruit Extremities: no LE edema Lab Results Anesthesia Preop Results Results Anesthesia Widget: WBC 3.63 K/ul (4.8-10.8) L 08/17/24 Hgb 11.0 g/dl (14.0-18.0) L 08/17/24 Hct 31.8 % (42.0-52.0) L 08/17/24 Plt 144 K/uL (130-400) 08/17/24 Na 136 mmol/L (136-145) 08/17/24 K 4.1 mmol/L (3.5-5.1) 08/17/24 Cl 104 mmol/L (98-107) 08/17/24 CO2 25 mmol/L (21-32) 08/17/24 BUN 16 mg/dl (6-23) 08/17/24 Creat 0.88 mg/dl (0.6-1.4) 08/17/24 Glucose Level 122 mg/dl (70-99(Fasting)) H 08/17/24 PT 11.1 Seconds (9.0-12.0) 08/17/24 PTT 26 Seconds (21-31) 08/17/24 INR 1.0 (0.9-1.1) 08/17/24 Blood Type B Positive 08/17/24 Antibody Screen NEGATIVE 08/17/24 Testing Laboratory Results Leukocytosis/anemia relatively stable from 05/2024 labs. Following with CCP > labs forwarded for continuity of care. Electrocardiogram Date: 03/22/24 Findings: + NSR @ (69) Echocardiogram Date: 03/23/24 EF 60-65%. LV wall motion is normal. Mild cLVH. Basal septum is thickened and angulated consistent with sigmoid septum. Grade I DD. Mild LAD. Stress Test Date: 12/01/23 Negative exercise stress echocardiogram for ischemia 99% MPHR. Positive stress ECG for ischemia 99% MPHR, with 1-1.[address] depression in II, III, AVF, and V4-6. Likely false positive ECG, considering rapid resolution. 13.4 METS. Other Testing Chest CTA Date: 03/22/24 Pulmonary arteries: Unremarkable. No pulmonary embolism. Aorta: No acute findings. Normal caliber. No dissection. Lungs: Unremarkable. Pleural space: Unremarkable. No acute findings in the visualized arteries of the chest.
--- NOTE | 2024-09-30 12:46 | History & Physical Report ---
Date of Service September 30, 2024 Assessment & Plan (1) Post-traumatic osteoarthritis of right knee: 69-year-old gentleman with multiple medical comorbidities including a factor V abnormality with advanced right knee DJD. He does a history of knee arthroscopy in the past. He failed conservative measures. He like to have his knee replaced. Plan: We are going to take him to the operating room and do a right total knee replacement. The risks and benefits of this procedure were explained to the patient in depth and he understands. Certainly he is at increased risk for thrombosis due to his factor V abnormality. We will put him on Xarelto for 30 days postop. He also has a history of GI bleed and will have to manage that and he will stay on his pantoprazole. He did have a negative cardiac workup and is been cleared for surgery. Will plan to stay in the hospital overnight. Likely discharge postop day 1. (2) Hypertension: (3) History of GI bleed: (4) Neuropathy: (5) Spinal stenosis: (6) Hyperlipidemia: (7) Hypertension: (8) Factor 5 Leiden mutation, heterozygous: History of Present Illness Chief Complaint: . Right knee pain discomfort and stiffness. Primary Care Provider: Severiano Matthews MD . The patient is a 69-year-old gentleman who presents for surgical treatment of his right knee. He has had a long history of right knee pain discomfort described to gotten worse over time. We have been following for the past several years. He does have a history of a knee scope done many years ago. He was actually scheduled for surgery/replacement in the past but "chickened out". He has been through extensive conservative treatment in the past which has come less successful. Got global pain. He like to have his knee fixed. Allergies Allergy/AdvReac Type Severity Reaction Status Date / Time Penicillins Allergy Severe Itching Verified 08/11/24 14:24 tree nut Allergy Anaphylaxis Verified 08/17/24 12:16 Home Medications Medication Instructions Recorded Confirmed Type fenofibrate 160 mg tablet 160 mg PO HS 01/31/19 08/07/24 History losartan 50 mg tablet 75 mg PO HS 01/31/19 08/07/24 History atorvastatin 10 mg tablet 10 mg PO QPM 12/04/21 08/07/24 History pantoprazole 40 mg tablet,delayed 40 mg PO QAM 06/09/23 08/07/24 History release ascorbic acid 1,000 1 ea PO DAILY 10/11/23 08/07/24 History mc-kkmqfqvjfarl-snhlapye powder effervescent pack (Emergen-C) glucosamine sulf dipot 2 cap PO QAM 10/11/23 08/07/24 History chlr,msm,chond 550 mg-C 30 mg-bridger 1 mg capsule (Glucosamine Chondroitin) multivitamin 1 tab PO QAM 10/11/23 08/07/24 History albuterol sulfate 90 mcg/actuation 2 puff inhalation UD PRN SOB 08/07/24 08/07/24 History aerosol inhaler fexofenadine 180 mg tablet 180 mg PO QAM 08/07/24 08/07/24 History fluticasone 250 mcg-salmeterol 50 1 inh inhalation BID 08/07/24 08/07/24 History mcg/dose blistr powdr for inhalation montelukast 10 mg tablet 10 mg PO DAILY PRN allergy season 08/07/24 08/07/24 History Past Med/Surg History Problem List Mild persistent asthma, uncomplicated Post-traumatic osteoarthritis of right knee Bilateral tinnitus Cervical radiculopathy (Acute) Asthma (Acute) Hypertension (Acute) Allergic rhinitis (Acute) Medical History Anemia Chronic, following with CCP Sensorineural hearing loss (SNHL) of both ears 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 Abdomen/Pelvis CTA 03/2024: Varices in the left upper quadrant and within the gastric fundus Follows with [facility], last visit 07/2024, subsequent unremarkable FibroScan testing Bilateral tinnitus Bilateral shoulder pain 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 No MR. No mitral stenosis. "There is no evidence of mitral valve prolapse." Follows with Dr. Last Hyperlipidemia Hypertension History of kidney stones passed on own History of esophageal reflux Factor 5 Leiden mutation, heterozygous Previously on aspirin 81mg, stopped ~2022 due to stomach issues Asthma Surgical History History of cholecystectomy 2018 History of carpal tunnel release left History of colonoscopy History of esophagogastroduodenoscopy (EGD) History of tonsillectomy Hx of cervical discectomy + fusion History of arthroscopy of right knee Status post trigger finger release x several H/O shoulder surgery R/L arthroscopic History of bilateral inguinal hernia repair Family History Unknown Allergic rhinitis Factor V Leiden mutation Father Hypertension Cancer Colon cancer Mother Cancer Social History Smoking Status: Heavy tobacco smoker Second Hand Exposure: Yes (hx as child); Do You Dip or Chew Tobacco: No; Hx Alcohol Use: Yes Alcohol type: beer Hx Substance Use: No Preferred Language: Irish Communication Ability: Effective Property Management Assistant Required: No Beliefs That Will Affect Care: None Current Living Situation: Spouse Feels Safe at Home: Yes Assistive Devices: Glasses and Hearing Aid - Bilateral Review of Systems All systems reviewed & are unremarkable except as noted in HPI & below. Physical Exam . Physical examination reveals a pleasant middle-age male. Looks in reasonably good health. Examination of the right knee reveals patient ambulates independently. He walks with a bit of a flexed knee gait. Got bony hypertrophy diffusely throughout his knee. Slight varus alignment. Range of motion is about 10-1 15. Pretty stiff knee in flexion. He is got a slight flexion contracture. No instability. No pain with hip motion. Constitutional WD/WN, vitals as above Respiratory normal respiratory effort, lungs clear to auscultation Cardiovascular RRR, no murmur, no edema Gastrointestinal (Abdomen) normal bowel sounds, soft, nontender, no hepatosplenomegaly Results & Data Results & Data Laboratory Results . Diagnostic Findings . X-rays of the knee were reviewed. It shows advanced right knee tricompartment DJD. He is got advanced disease in all 3 compartments. PG Care Time/CCT Total # of Minutes Spent Total Time Spent with Patient: Total time spent is greater than 50% in coordination of care (as documented) at patient's floor/unit and/or counseling patient: Coding Level of Care Code None Diagnoses Post-traumatic osteoarthritis of right knee M17.31 Hypertension I10 History of GI bleed Z87.19 Neuropathy G62.9 Spinal stenosis M48.00 Hyperlipidemia E78.5 Factor 5 Leiden mutation, heterozygous D68.51
[~2024-10-06 10:35] MED LIST changes: -ASPI81TA28 PO; +BUPIVACAINE 0.5 % 5 MG/1 ML PF 10ML VIAL ONE; -FENO160T PO; -LISI-461 PO; -MONT1TAB5 PO; -OMEP20TA PO; -PRVHFAIN INH; +ROPIVACAINE 0.5% 5 MG/ML 30 ML VIAL ONE
[2024-10-06] MEDS: LR 60ML/HR IV SCH (10:41)
--- NOTE | 2024-10-06 11:07 | History & Physical Bridge Note ---
Date of Service October 06, 2024 History & Physical Bridge Note I have examined the patient, reviewed the History & Physical and in the interval since the performance of the History & Physical I have noted the following changes of clinical significance: no changes noted
[2024-10-06] MEDS ORDERED: LIDOCAINE 2% 2 ML VIAL/AMP(20MG/ML) INFIL ONE (11:27)
[2024-10-06] MEDS ORDERED: fentaNYL citrate PF 100 MCG/2 ML VIAL ONE (11:27)
[2024-10-06] MEDS ORDERED: MIDAZOLAM HCL 1 MG/ML 2ML VIAL ONE (11:27)
[2024-10-06] MEDS ORDERED: PROPOFOL IV EMULSION 10 MG/ML 20 ML VIAL IV ONE ×2 (11:27→14:56)
[2024-10-06] MEDS: LR 500ML BOLUS, THEN 15ML/HR IV SCH (11:30)
[2024-10-06] MEDS: FAMOTIDINE 20 MG TAB PO SCH (11:32)
[2024-10-06] MEDS: dexAMETHasone**PF** 10 MG/ML VIAL IV SCH (11:32)
[2024-10-06] MEDS: CeleBREX 200 MG CAP PO SCH (11:32)
[2024-10-06] MEDS: ACETAMINOPHEN 500 MG TAB PO SCH ×2 (11:32→20:13)
[2024-10-06] MEDS: METOCLOPRAMIDE HCL 10 MG TABLET PO SCH (11:32)
[2024-10-06] MEDS ORDERED: ATROPINE SULFATE 0.1 MG/ML 10ML SYR IV PRN (11:41)
[2024-10-06] MEDS ORDERED: HYDROmorphone INJ 2 MG/ML SYR/VIAL IV PRN (11:41)
[2024-10-06] MEDS ORDERED: ePHEDrine sulfate 50 MG/ML AMP IV PRN (11:41)
[2024-10-06] MEDS ORDERED: PROMETHAZINE HCL 6.25 MG in SODIUM CHLORIDE 0.9% 50 ML IV PRN (11:41)
[2024-10-06] MEDS: ceFAZolin 2000MG 2,000 MG/15 ML SYR IV SCH ×2 (13:31→23:05)
[2024-10-06] MEDS: ROPIV 0.5% 246mg, Ketorolac 30mg, EPINEPHrine 0.5mg in NSS INFIL SCH (14:11)
[2024-10-06] MEDS: ORTHO JOINT ANESTHETIC ONE (14:11)
[2024-10-06] MEDS: VANCOMYCIN HCL 1000MG/20ML VIAL ONE (14:12)
[2024-10-06] MEDS ORDERED: GLYCOPYRROLATE 0.2 MG/ML VIAL ONE (14:40)
[2024-10-06] MEDS ORDERED: ONDANSETRON INJ 2 MG/ML 2 ML VIAL ONE (14:40)
[2024-10-06] MEDS ORDERED: KETAMINE HCL 10MG/ML SYR ONE (14:41)
[2024-10-06] MEDS: TRANEXAMIC ACID 1,000 MG **IV Intra-op IV SCH (14:41)
--- NOTE | 2024-10-06 15:44 | Operative Report ---
PG Post Operative Report Pre & Post Diagnosis Operation Date: 10/06/24 12:30 Pre-Op Diagnosis: Right Knee Degenerative Joint Disease Post-Op Diagnosis: Right Knee Degenerative Joint Disease I identified the patient and participated in the time-out.: Yes Procedure Operation Date: 10/06/24 12:30 Actual Procedures p Right Total Knee Arthroplasty(Right) - Bipin Gresham MD Surgeon Bipin Gresham MD Dice Maker None Estimated Blood Loss 100 Findings Consistent with Post-Op Diagnosis Operative findings revealed extensive grade 4 dcij-er-mzie disease in all 3 compartments. He had chronic ACL deficiency. Osteophytes in all 3 compartments. Specimens Right knee sent for pathology. Anesthesia Type Spinal MAC Complications none Disposition Accompanied Patient To Recovery: No Indications The patient is a 69-year-old gentleman who said a long history of right knee problems. He had a previous open surgery many years ago. Over time he developed increased pain discomfort stiffness in his knee. Is been through extensive conservative treatment which became less successful over time. He would like to proceed with a right total knee arthroplasty. Description of Procedure Operative implants consist of: 1 Biomet Vanguard size 67.5 right posterior stabilized femoral component. 2. Biomet size 75 tibial tray. 3. 10 mm posterior stabilized polyethylene insert. 4. 34 x 8-1/2 all poly patella. The patient was taken to the operating room, identified, placed on the operating table in the supine position. A spinal anesthetic and adductor canal block had been provided in the holding area. All contact areas were appropriately padded. IV antibiotics were provided by anesthesia team. A right thigh tourniquet was then placed. The right lower extremity was then prepped and draped in usual sterile fashion. The right leg was elevated and exsanguinated with use of an Esmarch and the tourniquet was placed at 300 mmHg. An anterior approach to the right knee was then performed to a longitudinal incision centered over the patella. Sharp dissection was Through subcutaneous tissue down to the extensor mechanism. A medial parapatellar arthrotomy incision was made. Some subperiosteal dissection was carried out medially. The fat pad was resected from each patella tendon. The lateral patellofemoral ligament was released. The patella was subluxated laterally and the knee was flexed. The osteophytes taken off distal femur. The ACL and PCL were then released from the distal femur and the tibia subluxated anteriorly. The external tibial alignment jig was then placed on the anterior face of the tibia and adjusted 14 mm medially. The proximal tibial cut was made. Made the initial cut and took quite a bit of bone anteriorly but there was a large slope to his tibia. It did not even cut to the level of the base of the defect. Therefore I replaced the tibial guiding side and covered an additional 3 mm. The tibia was then sized to a size 75. Attention drawn the femur. The distal femur down to a sharp drop with intramedullary canal was suction. Right 6 degree valgus cutting guide was placed. The distal femoral cutting block was pinned in place. This femoral cut was made taking additional 3 mm of bone off the distal femur. The femur was then sized to a size 67.5. The AP cutting block was pinned parallel to the epicondylar axis which was 5 degrees of external rotation. The anterior cut, anterior chamfer, posterior cut, posterior chamfer cuts were made. The box cutting guide was placed in a just slightly and the box cut was made. The knee was flexed. The remnants of the medial and lateral menisci were excised. The osteophytes were taken off the posterior aspect of the femur. A trial femoral component was placed. The tibial tray was pinned in maximum external rotation and the drill and stem punch were used to create defect in the proximal tibia for the tibial tray. The knee was then trialed and the 10 mm insert fit most appropriately. Attention drawn the patella. The patella was cleaned of all soft tissues. The patella thickness measured 24 mm in thickness was cut down to 14. It was sized to a size 34 patella. The lug holes were drilled for the 34 patella. The lateral aspect of knee. Patella button was placed. Knee was taken through range of motion patella tracked nicely with no thumbs test. Attention was then drawn for placement of permanent components. All trial components were removed. A bone plug was placed in the distal femur limb of blood loss. A double batch Palacos G cement was mixed. A Biomet Vanguard size 67.5 right posterior stabilized femoral component, size 75 tibial tray, 10 mm posterior stabilized polyethylene insert and a 34 x 8 and half all poly patella was then placed. Then the knee was brought out into full extension until cement hardened. A final cement check was then performed. The pericapsular tissues were injected with a total of 100 cc of Ortho mix. The patient did receive 1 g tranexamic acid. The tourniquet was then let down for final tourniquet time 69 minutes. Hemostasis assured use electrocautery. Extensor Mech was then closed with combination 1 PDS suture of #1 Vicryl suture in a gswiiv-fz-jdfid fashion. The extensor mechanism was checked found to be intact is obtained the tissues then closed with 2 Dexon suture in buried interrupted fashion and the skin was closed skin padma. Leg was then cleaned and dried and sterile dressing composed of Xeroform, 4 fours, sterile cast padding, Tim bandage were applied. Patient was then transferred to the recovery in stable condition. The patient tolerated the procedure well and there were no complications. I attest to the content of the Intraoperative Record and any orders documented therein. Any exceptions are noted below.
--- NOTE | 2024-10-06 16:28 | Anesthesiology Progress Note ---
Date of Service October 06, 2024 Anesthesia Post Procedure Vital Signs Vital Signs: Temp Pulse Pulse Resp BP Pulse Ox O2 Del Method 10/06/24 16:20 36.4 C L 78 16 119/64 96 Room Air 10/06/24 16:10 65 13 155/53 H 96 Room Air 10/06/24 16:00 66 15 116/59 L 95 Room Air 10/06/24 15:50 70 18 113/58 L 94 Room Air 10/06/24 15:40 36 C L 72 16 103/55 L 100 Oxymask 10/06/24 11:01 37.1 C 79 20 154/69 H 97 Room Air O2 Flow Rate 10/06/24 16:20 10/06/24 16:10 10/06/24 16:00 10/06/24 15:50 10/06/24 15:40 6 10/06/24 11:01 Transfer of Care Handoff Completed per policy Notes Mental Status: alert / awake / arousable Patient Amnestic to Procedure: Yes Nausea / Vomiting: adequately controlled Pain: adequately controlled Airway Patency, RR, SpO2: stable & adequate BP & HR: stable & adequate Hydration State: stable & adequate Neuraxial Anesthesia: was administered and sensory block is resolving Anesthetic Complications: no major complications apparent and Pt Satisfied with anesthetic care
[2024-10-06] MEDS ORDERED: METOCLOPRAMIDE HCL INJ 5 MG/ML 2 ML VIAL IV PRN (17:07)
[2024-10-06] MEDS ORDERED: ALUMINUM/MAGNESIUM SUSP 30 ML UDC PO PRN (17:07)
[2024-10-06] MEDS ORDERED: oxyCODONE HCL IR 5 MG TAB (IMMEDIATE RELEASE) PO PRN (17:07)
[2024-10-06] MEDS ORDERED: NALOXONE HCL 0.4 MG/1 ML VIAL/CARP IV PRN (17:07)
[2024-10-06] MEDS ORDERED: ALBUTEROL HFA 8 GM INHALER INH PRN (17:07)
[2024-10-06] MEDS ORDERED: ONDANSETRON INJ 2 MG/ML 2 ML VIAL IV PRN (17:07)
[2024-10-06] MEDS ORDERED: MAGNESIUM HYDROXIDE SUSP 30 ML UDC PO PRN (17:07)
[2024-10-06] MEDS ORDERED: HYDROmorphone INJ 0.5 MG/0.5 ML SYR IV PRN (17:07)
[2024-10-06] MEDS ORDERED: diphenhydrAMINE Capsule 25 MG CAP PO PRN (17:07)
[2024-10-06] MEDS ORDERED: bisacodyL 10 MG SUPP PR PRN (17:07)
--- NOTE | 2024-10-06 17:10 | XRay Report ---
EXAM: XR knee RT 1 or 2V routine CLINICAL HISTORY: Surgical Post Op TECHNIQUE: X-ray images of the right knee were obtained in anteroposterior (AP) and lateral projections. COMPARISON: 06/21/2017 FINDINGS: Bone Structure: Total knee replacement is well-aligned. No evidence of acute fractures or dislocations. No osseous lesions or abnormalities identified. Patella: The patella is normal in position and alignment. No evidence of patellar dislocation or subluxation. Soft Tissues: Periarticular soft tissue swelling was noted with surgical emphysema. No soft tissue calcifications or foreign bodies were noted. Additional Findings: Opacified suprapatellar bursa, suggesting joint effusion. IMPRESSION: 1. Post total knee replacement prostheses in good position. 2. Severe chronic osteoarthritis was noted at the previous CR. 3. Surrounding soft tissue swelling and surgical emphysema. 4. Suprapatellar joint effusion was also noted. 5. No evidence of acute fractures, dislocations, or significant degenerative changes. Disclaimer: A subtle bone abnormality or fracture may not be readily apparent on X-rays, thus clinical correlation and further imaging including follow-up CT, MRI, or follow-up X-rays are advised as needed. Electronically signed by Dinesh Madsen 10-06-2024 5:10 PM
[2024-10-06] MEDS: KETOROLAC TROMETHAMINE 15 MG/ML VIAL IV SCH (17:39)
[2024-10-06] MEDS: ASCORBIC ACID 500 MG TAB PO SCH (17:44)
[2024-10-06 20:09] VITALS: RESP 16
[2024-10-06] MEDS: FENOFIBRATE NANOCRYSTALLIZED 145 MG TABLET PO SCH (20:13)
[2024-10-06] MEDS: ATORVASTATIN 10 MG TAB PO SCH (20:13)
[2024-10-06] MEDS: LOSARTAN POTASSIUM 25 MG TAB PO SCH (20:13)
[2024-10-06] MEDS: DOCUSATE SODIUM 100 MG CAP PO SCH (20:13)
[2024-10-06] MEDS: SENNA 8.6 MG TAB PO SCH (20:14)
[2024-10-06] MEDS ORDERED: SENNA 8.6 MG TAB PO SCH (21:00)
[2024-10-06] MEDS ORDERED: PNEUMOCOCCAL VACCINE (PCV20) 20-VAL CONJ-DIP CRM/PF 0.5 ML SYR IM ONE (21:00)
[2024-10-06] MEDS: TRANEXAMIC ACID / 0.7% NACL 1,000 MG/100 ML BAG IV SCH (23:05)
[2024-10-07 03:28] VITALS: TEMP 97.9
[2024-10-07 06:56] VITALS: BP 144/60; PULSE 69; O2SAT 96
[2024-10-07] MEDS: FEXOFENADINE HCL 180 MG TAB PO SCH (07:33)
[2024-10-07] MEDS: TAMSULOSIN HCL 0.4 MG CAP PO SCH (07:33)
[2024-10-07] MEDS: PANTOprazole 40 MG TAB PO SCH (07:34)
[2024-10-07] MEDS: MULTIVITAMIN TAB PO SCH (07:34)
[2024-10-07] MEDS: MONTELUKAST SODIUM 10 MG TABLET PO PRN (07:34)
[2024-10-07] MEDS: FLUTICASONE/VILANTEROL 200/25MCG 14 PUFFS/INHALER INH SCH (07:34)
[2024-10-07] MEDS: dexAMETHasone 10 MG in SYRINGE 0 ML IV SCH (07:35)
[2024-10-07 07:45] LABS: Hematocrit (blood only) 27.2 % (42.0-52.0); Hemoglobin 9.7 g/dl (14.0-18.0); Mean Corpuscular Hemoglobin 28.6 pg (25.0-34.0); Mean Corpuscular Hgb Conc 35.7 g/dL (32.0-36.0); Mean Corpuscular Volume 80.2 fL (80.0-100.0); Mean Platelet Volume 10.3 fL (9.4-12.4); Platelet Count 95 K/uL (130-400); RDW Coefficient of Variation 13.8 % (11.5-14.5); RDW Standard Deviation 40.1 fL (36.4-46.3); Red Blood Count 3.39 M/uL (4.70-6.10); White Blood Count 9.34 K/ul (4.8-10.8)
[2024-10-07 08:01] LABS: BUN Creatinine Ratio 26.5 (10-20); Calcium 8.9 mg/dl (8.6-10.3); Creatinine Clr Calc Pharmacy 74.8 ml/min
--- NOTE | 2024-10-07 08:12 | Orthopedic Progress Note ---
Date of Service October 07, 2024 Assessment & Plan (1) Status post right knee replacement: Plan: 69-year-old gentleman postop day 1 from right knee replacement factor V abnormality. Orthopedically looks great. Pain is controlled. He is neurologically intact. Plan: 1. DVT prophylaxis including thigh-high teds, SCDs, and Xarelto to start 24 hours postop. 2. PT/OT. Weight-bear as tolerated right total knee protocol. 3. Pain control. Doing well with current pain regimen. 4. Disposition. Plan to discharge to home with some home health later today if he does okay in therapy. Admission and Anticipated Discharge Date Admission Date: October 06, 2024 Subjective 69-year-old gentleman postop day 1 from right knee replacement. He is doing well. Have a good night. Pain is controlled. No chest pain or shortness of breath. Not feeling dizzy or lightheaded. Physical Exam Physical Exam: Physical examination was a pleasant middle-age male. He is sitting up in bed this morning looks quite comfortable. Examination of the right leg reveals the dressing to be clean dry and intact. Leg is well aligned. There is no drainage. He can dorsiflex and plantarflex his foot appropriate. He is neurologically intact. Respiratory: normal respiratory effort, lungs clear to auscultation Cardiovascular: RRR, no murmur, no edema Gastrointestinal (Abdomen): normal bowel sounds, soft, nontender, no hepatosplenomegaly Results & Data Vital Signs (Past 12 Hours) Vital Signs Temp Pulse Resp BP Pulse Ox O2 Del Method 10/07/24 06:56 36.6 C 69 16 144/60 H 96 Room Air 10/07/24 03:27 36.6 C 66 16 125/59 L 97 Room Air 10/06/24 23:08 36.7 C 66 16 113/55 L 96 Room Air Laboratory Results Hemoglobin is 9.7. Hematocrit is 27.2. Electrolytes stable. Sodium slightly low at 130.
[2024-10-07] MEDS ORDERED: NON-FORMULARY MEDICATION (Glucos Sul 2kcl-Msm-Chond-C-Mn [Glucosamine Chondroitin] 550-30- PO SCH (09:00)
[2024-10-07] MEDS ORDERED: NON-FORMULARY MEDICATION (Ascorbic Acid-Multivit-Min [Emergen-C] 1,000 mg Powder Effervesc PO SCH (09:00)
[2024-10-07] MEDS ORDERED: NON-FORMULARY MEDICATION (Multivitamin Tablet) PO SCH (09:00)
[2024-10-07] MEDS ORDERED: RIVAROXABAN 10 MG TABLET PO SCH (16:00)
--- NOTE | 2024-10-10 15:48 | Discharge Summary ---
Date of Service October 10, 2024 Admission HPI (Per Admitting) . The patient is a 69-year-old gentleman who presents for surgical treatment of his right knee. He has had a long history of right knee pain discomfort described to gotten worse over time. We have been following for the past several years. He does have a history of a knee scope done many years ago. He was actually scheduled for surgery/replacement in the past but "chickened out". He has been through extensive conservative treatment in the past which has come less successful. Got global pain. He like to have his knee fixed. Admission Exam (Per Admitting) . Physical examination reveals a pleasant middle-age male. Looks in reasonably good health. Examination of the right knee reveals patient ambulates independently. He walks with a bit of a flexed knee gait. Got bony hypertrophy diffusely throughout his knee. Slight varus alignment. Range of motion is about 10-1 15. Pretty stiff knee in flexion. He is got a slight flexion contracture. No instability. No pain with hip motion. Principal Diagnosis Same as "Discharge Diagnosis" noted below under Discharge Instructions. Discharge Data Procedures Performed Operation Date: 10/06/24 12:30 Actual Procedures p Right Total Knee Arthroplasty(Right) - Bipin Gresham MD Ordered Studies 10/06/24 05:00 US - OR guided needle placemen Routine Hospital Course (1) Status post right knee replacement: This is a 69 year old patient admitted on 10/06/24 and underwent total knee arthroplasty. He tolerated the procedure well and there were no complications. Transferred to the PACU post op and later to the orthopedic floor for further care. He was given ancef for antibiotic prophylaxis. He was also given REBA stockings, SCDs, and xarelto for DVT prophylaxis. Hemoglobin, hematocrit, and vital signs were monitored during his hospital stay and remained stable. Did not require any blood transfusions. There were no complications during his hospital stay. By post op day #1 the patient was tolerating a regular diet, pain was reasonably controlled with oral pain medicine, and he was participating in physical therapy. On post op day #1 the patient was discharged home and set up with home health care. He was given printed discharge instructions including prescriptions for extra strength tylenol, xarelto, zofran, senokot, and flomax. Continue physical therapy, weight bearing as tolerated. Continue REBA stockings. Follow up approximately 2 weeks post op or sooner if there are problems or concerns. PG Care Time/CCT Total # of Minutes Spent Total Time Spent with Patient: Total time spent is greater than 50% in coordination of care (as documented) at patient's floor/unit and/or counseling patient: Discharge Plan Discharge Items Patient Disposition: Home - Home Health Services Reason For Visit: Right Knee Osteoarthritis Discharge Diagnosis: Right Knee Replacement Activity: Per Instructions section Weightbearing: Full weightbearing Non-emergency contact: Surgeon Call non-emergency contact if: you have any medication questions Follow-up/Referrals: Severiano Matthews MD [Primary Care Provider] - [facility] [Non-Staff] - Diet: Regular Addtl Attending Provider Instructions: ACTIVITY RECOMMENDATIONS: Diet: * You may resume previous diet. Physical Therapy: * You will go to physical therapy three times each week for four to six weeks after your surgery in order to regain your knee range of motion and to retrain your knee to work properly. * It is just as important to make sure you are getting your knee perfectly straight as it is to regain your knee bend. * Taking a pain pill an hour before therapy can help you have a more productive and comfortable therapy session. Home Exercise: * You were shown a series of exercises (heel props, heel slides, etc.) in the hospital. Do these exercises three to four times each day including the exercises you were shown in physical therapy. Walking: * Get up and walk several times each day. For the first four weeks, try not to stand or walk for more than one hour at a time. If you do stand or walk for more th an one hour, you will not hurt anything, but your knee and leg will likely swell. * As you feel comfortable, you may change from the walker or crutches to a cane and then to independent walking. MEDICATIONS: New Medicine: * You will likely be taking one or more of these medications: 1. Oxycodone - A quick and shorter-acting pain medication. Take one to two tablets every six hours to lessen your pain. 2. Xarelto - Thins your blood to lessen the chance of forming a blood clot. * The most common side effects of pain medicine and iron are nausea and constipation. If nausea or constipation is too much of a problem or if you have any questions about your new medicines or doses, call [facility] at . We will try to help you manage these issues. "VERY IMPORTANT TO READ AND REVIEW" Pain: * The immediate post-operative period after knee replacement surgery is often quite painful. * You are given a prescription for pain medicine. You should take it, as directed, when you need it, especially before physical therapy and before going to bed. Pain that interferes with sleep is very common and can last several months. * You will likely need pain medicine for the first four to six weeks. It will not stop all of the pain. The pain will lessen and as you feel better, you may change to milder pain medicine such as Tylenol. * The most common side effects of pain medicine are nausea and constipation, so don't take more than you need. SPECIAL CARE INSTRUCTIONS: TEDs/Elastic Stockings: * The white elastic stockings help limit swelling and prevent blood clots from forming in your legs. The more you wear them, the more they work. * Wear them for six weeks after knee replacement surgery and four weeks after partial knee replacement. Incision Site Care: * Remove dressing postoperative day 2 and then shower. Keep direct shower pressure off the incision site. * After showering, cover padma with dry gauze and change daily or more frequently if the dressing is getting saturated with drainage. * Use the REBA stockings to hold dressing in place. DO NOT apply tape on the skin. * May completely stop using bandage if wound is dry and no drainage * Padma are removed between 2 and 3 weeks post-op. If your follow-up appointment is made before 2 weeks, please have your appointment re- scheduled. It is too early to remove the padma. Prevention of Infection: * Take antibiotics one hour before any dental cleaning, dental work, urological procedure, gastrointestinal procedure or any invasive surgery in order to prevent your new joint from getting infected. * You may get the antibiotics from the doctor performing the procedure or you may call our office at [phone] before and we will call in a prescription to the pharmacy of your choice. Things to Watch For: * Drainage from the incision site that occurs more than one week after your surgery. * Severely increased knee/leg pain or swelling. * Increased redness at the incision site. * Fever above 102 degrees Fahrenheit. * Unusual chest pain or shortness of breath. * Unusual pain or burning with urination. Call [facility] at [phone] with any of the above problems or if you have any questions about your medicines or recovery. FOLLOW UP VISIT: Make an appointment to see your doctor for approximately two weeks after surgery for a progress check and staple removal by calling the office at [phone]. Pending Studies at Discharge: No Stand-Alone Forms: My [facility], Smoking Cessation Medications and DC Order Prescriptions: Continued oxycodone 5 mg tablet 5 - 10 mg PO Q6 PRN (Reason: pain) Qty: 40 0RF Rx Instructions: Take as needed for pain ondansetron 4 mg tablet,disintegrating 4 mg PO Q8 PRN (Reason: nausea) Qty: 20 1RF Rx Instructions: Take as needed for nausea sennosides [Senokot] 8.6 mg tablet 8.6 mg PO BID 14 Days Qty: 28 0RF Rx Instructions: Take two times a day to prevent/treat constipation Xarelto 10 mg tablet 10 mg PO DAILY 30 Days Qty: 30 0RF Rx Instructions: Take 1 tablet daily for 30 days to prevent blood clots acetaminophen [Tylenol Extra Strength] 500 mg tablet 1,000 mg PO TID 30 Days Qty: 180 0RF Rx Instructions: Take 3 times per day to lessen pain. tamsulosin [Flomax] 0.4 mg capsule 0.4 mg PO DAILY Qty: 7 0RF Rx Instructions: Begin night BEFORE surgery to prevent urinary retention atorvastatin [Lipitor] 10 mg tablet 10 mg PO QPM fenofibrate 160 mg tablet 160 mg PO HS losartan 50 mg tablet 75 mg PO HS pantoprazole 40 mg tablet,delayed release (DR/EC) 40 mg PO QAM multivitamin Tablet 1 tab PO QAM Emergen-C 1,000 mg Powder Effervescent In Packet 1 ea PO DAILY Rx Instructions: Unable to verify OTC meds at this date/time/. Glucosamine Chondroitin 550-30-1 mg Capsule 2 cap PO QAM Rx Instructions: Unable to verify OTC meds at this date/time/. fexofenadine [Berenice Allergy] 180 mg Tablet 180 mg PO QAM fluticasone propion-salmeterol [Advair Diskus] 250-50 mcg/dose blister with device 1 inh inhalation BID Patient Comments: currently only using once daily, tree pollen season will use twice daily Rx Instructions: USE 1 INHALATION TWICE A DAY montelukast 10 mg tablet 10 mg PO DAILY PRN (Reason: allergy season) albuterol sulfate 90 mcg/actuation HFA aerosol inhaler 2 puff inhalation UD PRN (Reason: SOB) Patient Comments: usually before exercise Rx Instructions: INHALE 2 PUFFS EVERY 4 HOURS NEEDED- ProAir HFA diphenhydramine HCl [Benadryl] 25 mg Capsule 25 mg PO HS PRN (Reason: Sleep) Admission Data Admit Date/Time: 10/06/24 15:41 Attending Provider: Bipin Gresham Admit Provider: Bipin Gresham Primary Care Provider: Severiano Matthews Other Providers: [facility] Other Interventions: Discharge Summary Assessment (RN) Last Done: 10/07/24 08:42
== END 2024-10-07 10:30 | disposition home health service (06) ==
LOC: ASU 10:35 → 3E 10:35